=== PATIENT | female | born 1945 | race Caucasian/White ===

== ENCOUNTER → 2017-01-24 | Outpatient (CLI) | payer OTHER ==
[~2017-01-24] MED LIST: ACETAMINOPHEN325 M1 PO; ALBUTEROL NEB IH; ALPRAZOLAM 0.0.25 M1 PO; AMARYL2 MG PO; ANASTROZOLE1 MG PO; ARIMIDEX PO; ARTIFICIAL TEAR15 M1; ARTIFICIAL TEAR15 M1 OP; BENZTROPINE; BUDESONIDE0.25 MG/2 IH; CARVEDILOL6.25 MG PO; COMBIVENT PO; COZAAR 25 MG TA25 MG PO; COZAAR100 MG PO; DEPAKOTE ER250 MG PO; DEPAKOTE ER500 MG PO; DEPAKOTE500 MG PO; DESYREL150 MG PO; DEX4 GLUCOSE1 EACH PO; DIABETIC T200 MG/5 M PO; FLEXERIL PO; FLONASE 0.05%50 MCG NS; GLUCAGEN1 M2 SUBQ; HUMULIN 70100 UNIT/2 SQ; HUMULINR100 SC; HYDROCODON-ACE1 EACH PO; HYDROCODONE-AP1 EAC6 PO; LEVEMIR SUBQ; LOPERAMIDE 2 MG2 M1 PO; MECLIZINE HCL12.5 MG PO; MONTELUKAST SOD10 MG PO; NIASPAN 500 MG500 M1 PO; NOVOLIN R100 UNIT/1 SUBQ; NOVOLOG100 UNIT/1 SUBQ; POLYETHYLENE G255 GM PO; PROZAC 20 MG20 MG PO; RANITIDINE 150150 MG PO; RISPERDAL 3 MG T3 M1 PO; RISPERDAL0.25 MG PO; RISPERDAL2 MG PO; SIMVASTATIN40 MG PO; TESSALON PERLE100 MG PO; TOPAMAX 25 MG T25 M1 PO; VENTOLIN HFA 1818 GM INH; VERAMYST10 GM NASAL; VICODIN 5-5001 EACH PO; VITAMIN D 5050000 I1 PO; VITAMIN D31000 UNI2 PO; VITAMIN D350000 UNIT PO; VOLTAREN GEL 1100 G1 TOP; [UNRECOGNIZED DRUG - OTHER] PO
== END ==
LOC: RAD 03:50
DX: R92.2 Inconclusive mammogram (principal)

== ENCOUNTER → 2017-02-05 | Outpatient (CLI) | payer OTHER | LOC: MRI 07:30 | DX: R52 Pain, unspecified (principal) ==

== ENCOUNTER → 2018-02-06 | Outpatient (CLI) | payer OTHER | LOC: RAD 03:17 | DX: Z12.31 Encounter for screening mammogram for malignant neoplasm of breast (principal) ==

== ENCOUNTER → 2019-02-06 | Outpatient (CLI) | payer OTHER | LOC: RAD 01:14 | DX: Z12.31 Encounter for screening mammogram for malignant neoplasm of breast (principal) ==

== ENCOUNTER 2020-02-22 19:09 | Inpatient (IN) | payer OTHER ==
[~2020-02-22] VITALS: Ht 157.5 cm; Wt 70.4 kg
--- NOTE | ~2020-02-22 | EMS ---
[address] [address] EMS Patient Care Report Name: APOLINAR VEGA Room #: REG DEEPIKA Mckeon#: [id number] Admission: 02/22/20 Attend Phys: Discharge: Date of : 43 Report #: [id number] THIS REPORT FOR: //name// Report Transmitted: 02/22/2020 20:07 EMS Care Summary [place], [place]/[facility] Incident [id number] @ 02/22/2020 18:09 Incident Location [address] Patient APOLINAR VEGA Female, 75 Years 1945 Patient Address [address] [place] [address] Patient History Chronic Obstructive Pulmonary Disease (COPD),Hypertension (HTN),Parkinson's Disease,Hyperlipidemia,Gastro-Esophageal Reflux Disease (GERD),Breast Cancer,Bipolar II Disorder,Sleep Apnea,Type 2 Diabetes, Patient Allergies Codeine,Penicillin allergy,Sulfa, Patient Medications Ventolin, Lexapro, Alprazolam, Simvastatin, Loratadine, Glimepiride, Cyclobenzaprine, Novolog, Albuterol, Levemir, Depakote, Gabapentin, Loperamide, Losartan, Chief Complaint Dyspnea with decreased SaO2 on RA Disposition Transported No Lights/Labadie Dispatch Reason Breathing Problem Transported To [facility] [address] [place] [address] EMS Patient Care Report Name: APOLINAR VEGA Room #: REG [facility]..#: [id number] Admission: 02/22/20 Attend Phys: Discharge: Date of : 43 Report #: [id number] Narrative Called to the scene for SOB. Upon arrival, pt was BAIRES x 3 sitting in her chair with O2 via NC. PR staff reported the pt became SOB and they tried O2 @ 2 lpm which helped but then had to increase it to 4 lpm. A chest X-Ray did not show any obvious issues. They requested transport to [facility]. Pt moved to the EMS cot and loaded into the ambulance w/o incident. Vitals obtained. Attempt IV 18g x 2 w/o success in R FA. Vitals repeated. En route: pt SaO2 doing fine. RR to [facility], they advised they were on diversion. Re-routed to [facility] ER. No changes in pt condition. RR to [facility]. Arrived: pt taken to ER # and moved to their bed w/o incident. Pt care & report to ER staff. Initial Vitals @18:30P: 75,R: 16,BP: 117/46,Pain: 0/10,CO: 0,SpO2: 96, @18:40P: 79,R: 16,BP: 120/50,Pain: 0/10,GCS: 15,Glucose: 101,CO: 0,SpO2: 97,Revised Trauma: 12, Assessments @18:20MENTAL:Person Oriented,Time Oriented,Event Oriented,Place Oriented,SKIN:HEENT:LUNG SOUNDS:ABDOMEN:PELVIS//GI:EXTREMITIES:Left Arm: No Abnormalities,Right Arm: No Abnormalities,Left Leg: No Abnormalities,Right Leg: No Abnormalities,PULSE:Radial: 2+ Normal,NEURO: Impression Acute Respiratory Distress (Dyspnea) Procedures @18:20ALS AssessmentResponse: UnchangedSucceeded@PTAOxygen FlowRate: 4 Device: Nasal Cannula (NC) Response: ImprovedSucceeded@18:55Saline Lock cc (18 ga) Site: Forearm-RightResponse: UnchangedFailed@18:55Saline Lock cc (18 ga) Site: Forearm-RightResponse: UnchangedFailed@18:54StretcherResponse: Unchanged Timeline 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,Oxygen FlowRate: 4 Device: Nasal Cannula (NC) Response: ImprovedSucceeded, 18:06,Call Received 18:06,Dispatch Notified 18:09,Dispatched 18:11,En Route 18:19,On Scene 18:20,At Patient 18:20,ALS Assessment,Response: UnchangedSucceeded, 18:30,BP: 117/46 M,PULSE: 75,RR: 16 R,SPO2: 96 Ox,ETCO2: ,BG: ,PAIN: 0,GCS: , 18:35,Depart Scene 18:40,BP: 120/50 M,PULSE: 79,RR: 16 R,SPO2: 97 Ox,ETCO2: ,B,PAIN: 0,GCS: 15, 18:54,Stretcher,Response: Unchanged [address] [address] EMS Patient Care Report Name: APOLINAR VEGA Room #: REG DEEPIKA Mckeon#: [id number] Admission: 02/22/20 Attend Phys: Discharge: Date of : 43 Report #: [id number] 18:55,Saline Lock cc 18 ga Site: Forearm-Right,Response: UnchangedFailed, 18:55,Saline Lock cc 18 ga Site: Forearm-Right,Response: UnchangedFailed, 19:05,At Destination 19:26,Call Closed Disclaimer v1.1 Copyright 2020 [employer] This EMS Care Summary contains data elements from the applicable legal record (which may be displayed differently). It is designed to provide pertinent information for the following purposes: continuity of care, clinical quality, and state data reporting. The complete legal record is available to ED staff and administrators of the receiving hospital in [facility]'s Patient Tracker. All data is provided "as is."
[~2020-02-22 19:09] MED LIST changes: +LEVEMIR100 UNIT/1 SUBQ
[2020-02-22 19:14] VITALS: BP 146/40
[2020-02-22] MEDS ORDERED: FLEXERIL PO ×2 (19:25)
[2020-02-22] MEDS ORDERED: GABAPENTIN100 MG PO (19:28)
[2020-02-22] MEDS ORDERED: NEURONTIN300 MG PO (19:28)
[2020-02-22] MEDS ORDERED: XANAX 0.25 MG0.25 MG PO (19:29)
[2020-02-22] MEDS ORDERED: LIDODERM1 EACH TOP (19:30)
[2020-02-22] MEDS ORDERED: BIOFREEZE118 ML TOP (19:31)
[2020-02-22] MEDS ORDERED: LEXAPRO20 MG PO (19:32)
[2020-02-22] MEDS ORDERED: ALEVE220 M1 PO (19:35)
[2020-02-22] MEDS ORDERED: PROMETH-CODEIN 65 ML PO (19:36)
[2020-02-22] MEDS ORDERED: NASAL SPRAY30 ML NARES (19:36)
[2020-02-22] MEDS ORDERED: SINGULAIR 10 MG10 M1 PO (19:37)
[2020-02-22] MEDS ORDERED: IPRAT-ALBUT 0.5-3 ML INH (19:38)
[2020-02-22] MEDS ORDERED: SALINE NASAL M126 ML NARES (19:40)
[2020-02-22] MEDS ORDERED: LORATIDINE 10 M10 M1 PO (19:42)
[2020-02-22] MEDS ORDERED: DEPAKOTE ER250 MG PO (19:42)
[2020-02-22] MEDS ORDERED: DEPAKOTE500 MG PO (19:43)
[2020-02-22] MEDS ORDERED: FAMOTIDINE20 MG PO (19:46)
[2020-02-22] MEDS ORDERED: DIABETIC T100 MG/5 M PO (19:47)
[2020-02-22] MEDS ORDERED: VESICARE10 M1 PO (19:48)
[2020-02-22] MEDS ORDERED: NOVOLOG FL100 UNIT/M SUBQ (19:48)
[2020-02-22] MEDS ORDERED: SIMVASTATIN80 MG PO (19:54)
[2020-02-22] MEDS ORDERED: SUPER THERAVIT1 EACH PO (19:54)
[2020-02-22] MEDS ORDERED: DULCOLAX10 MG RECTAL (19:55)
[2020-02-22] MEDS ORDERED: TUMS ULTRA400 MG PO (19:56)
[2020-02-22] MEDS ORDERED: SYSTANE HYDRAT1 EACH EA. EYE (19:56)
[2020-02-22] MEDS ORDERED: LOSARTAN POTAS100 MG PO (19:57)
[2020-02-22 20:03] LABS: ABSOLUTE NEUTROPHILS 4.8 thou/uL (1.4-8.2); BASOPHILS 0.9 % (0.0-2.0); EOSINOPHILS 1.6 % (0.0-3.0); HEMATOCRIT 24.7 % (37.0-47.0); HEMOGLOBIN 7.8 gm/dL (12.0-15.0); LYMPHOCYTES 20.8 % (24.0-44.0); MCH 28.5 pg (26.0-34.0); MCHC 31.3 g/dL (28.0-37.0); MCV 90.9 fL (80.0-100.0); MONOCYTES 9.5 % (1.0-8.0); PLATELET COUNT 311 thou/uL (150-400); POLYS 67.2 % (36.0-66.0); RBC 2.72 mil/uL (4.20-5.00); RDW 16.9 % (10.5-14.5); WBC 7.2 thou/uL (4.0-11.0)
[2020-02-22 20:09] LABS: CALCIUM 8.6 mg/dL (8.5-10.1); CREATININE 0.7 mg/dL (0.6-1.0)
[2020-02-22 20:14] LABS: BE(vivo) 7.2 mmol/L (-2 to +3); PO2 122.6 mmHg (80.0-100.0); pH 7.337 (7.360-7.450); sO2 98.1 % (92.0-98.0)
[2020-02-22 20:20] LABS: ALBUMIN 2.8 g/dL (3.4-5.0); TOTAL BILIRUBIN 0.2 mg/dL (0.2-1.0); TOTAL PROTEIN 6.8 g/dL (6.4-8.2)
[2020-02-22 20:21] LABS: TROPONIN-I 0.87 ng/mL (<0.06)
--- NOTE | 2020-02-22 21:00 | NUR ---
CONSENT SIGNED AT THIS TIME WITH PATIENT AND SHASHANK MELCHOR WITNESS DUE TO PATIENT BEING IN ISOLATION ROOM
--- NOTE | 2020-02-22 21:12 | NUR ---
ELVIS VEGA, PATIENT'S DAUGHTER, CALLED AT THIS TIME PER PATIENT REQUEST TO UPDATE HER.
[2020-02-22 21:48] VITALS: BP 149/62
--- NOTE | 2020-02-22 22:18 | NUR ---
report attempted to 3 west. Nurse reports will have to call ER back
[2020-02-22 22:42] VITALS: BP 132/49; BP 149/62
[2020-02-23] VITALS (41 sets, daily range): BP systolic 80–188; BP diastolic 33–161
--- NOTE | 2020-02-23 02:09 | NUR ---
Admission history and assessments completed. Careplan initiated. IVFluids and IV antibiotics started. High fall risks, fall precautions in place.
[2020-02-23 02:21] LABS: HEMATOCRIT 25.3 % (37.0-47.0); HEMOGLOBIN 7.7 gm/dL (12.0-15.0); MCH 28.3 pg (26.0-34.0); MCHC 30.5 g/dL (28.0-37.0); MCV 92.8 fL (80.0-100.0); RBC 2.72 mil/uL (4.20-5.00); RDW 17.3 % (10.5-14.5); WBC 8.7 thou/uL (4.0-11.0)
[2020-02-23 02:32] LABS: CALCIUM 7.9 mg/dL (8.5-10.1); CREATININE 0.6 mg/dL (0.6-1.0); MAGNESIUM 1.8 mg/dL (1.8-2.4)
[2020-02-23 02:48] LABS: TROPONIN-I 0.72 ng/mL (<0.06)
--- NOTE | 2020-02-23 07:57 | EKG ---
[facility] [place] [address] ELECTROCARDIOGRAM REPORT Name: APOLINAR VEGA Room #: 353-P ADM IN M.R.#: [id number] Admission: 02/22/20 Attend Phys: Valentine Snow MD Discharge: Date of : 43 Report #: [id number] THIS REPORT FOR: cc: Criss Negron,Criss Desai,Julio Mendieta MD [facility] ~ THIS REPORT FOR: //name// [facility] ED Test Date: 2020-02-22 Test Time: 19:59:34 Pat Name: APOLINAR VEGA Department: Room: [facility] Gender: F Devulcanizer Tender: vumsbibi : 1945 Requested By: Loulou He Order Number: [id number] MD: Julio Patel Measurements Intervals Carney Rate: 82 P: 56 [place]: 141 QRS: -6 QRSD: 108 T: 7 QT: 439 QTc: 513 Interpretive Statements Sinus rhythm RSR' in V1 or V2, right VCD Prolonged QT interval Compared to ECG 09/10/2016 17:14:51 Prolonged QT interval now present Electronically Signed On 02-23-2020 7:57:12 CDT by Julio Patel [email or web address] <ELECTRONICALLY SIGNED> By: Julio Patel MD, FACC 02/23/20 0757 58 58 Julio Patel MD, FAC /EPI
--- NOTE | 2020-02-23 09:19 | NUR ---
ATTEMPTED TO CALL SHREDDING MACHINE TENDER DOCTOR MAYTE TO ALERT HER OF PATIENTS DETERIORATING SATURATION TWICE NOW BUT DR HU HAS NOT CALLED BACK.
[2020-02-23 09:25] LABS: % SATURATION 8 % (20-39); IRON 22 ug/dL (50-170); TIBC 270 ug/dL (250-450)
--- NOTE | 2020-02-23 10:48 | NUR ---
0830 PT ALERT AND ORINETED X3, FORGETFUL AT TIMES. PT DENIES CHEST PAIN, ABDOMINAL PAIN, NAUSEA AND VOMITTING. PT IS ON 2L VIA NC, PT SEEMS TO BE IN DISTRESS, O2 INCREASE UP TO 4L, O2 SAT CONTINUES TO BE AROUND 88%, TACHYPNEA. RT GAVE PT O2 TX, INCREASED [address] DARLENE SALMON. ALESSANDRO SOTO ON THE FLOOR, SAW PT AND STATE PT SHOULD BE TX TO ICU DUE TO RESPIRATORY DISTRESS. PT PUT ON NRB, O2 SAT IN THE 98%, CONTINUES TO GRASP FOR AIR. 0940 PT TRANSFERRED TO ICU, ROOM 236. REPORT GIVEN TO SHASHANK ALBRIGHT. TRIED PAGING PT DAUGHTER, NO ANSWER. WILL TRY AGAIN.
--- NOTE | 2020-02-23 11:06 | NUR ---
1025-TRANSFER FROM FLOOR. PT W STERNAL RETRACTIONS & GASPING RESP'S. UNABLE TO SPEAK.NOT MOVING ANY AIR.STAT CALL TO THRU OFFICE.--VW 1040-SPOKE W . BIPAP TO BRIDGE & PLAN FOR INTUBATION.--VW 1105-PLACED ON BIPAP,.35%,05/17.SATS .92-93%. DTR UPDATED VIA PHONE.CONSENT FOR LINE OBTAINED.
[2020-02-23 12:27] LABS: HCO3 30.1 mmol/L (22.0-26.0); PCO2 76.5 mmHg (35.0-45.0); PO2 72.2 mmHg (80.0-100.0); pH 7.213 (7.360-7.450); sO2 90.4 % (92.0-98.0)
[2020-02-23 17:36] LABS: BE(vivo) 4.3 mmol/L (-2 to +3); HCO3 30.6 mmol/L (22.0-26.0); PCO2 54.6 mmHg (35.0-45.0); PO2 103.7 mmHg (80.0-100.0); pH 7.366 (7.360-7.450); sO2 97.5 % (92.0-98.0)
--- NOTE | 2020-02-23 20:44 | NUR ---
LOT# [id number] 5FRTL LINE PLACED IN RT IJ, TRIMMED AT 24CM WITH 5CM EXT. TIP IN SVC PLEASE SEE INSERTION NI FOR DETAILS
[2020-02-24] VITALS (44 sets, daily range): BP systolic 97–184; BP diastolic 37–72
[2020-02-24 04:15] LABS: PCO2 43.9 mmHg (35.0-45.0); PO2 92.8 mmHg (80.0-100.0); pH 7.406 (7.360-7.450); sO2 97.1 % (92.0-98.0)
[2020-02-24 05:56] LABS: HEMATOCRIT 28.6 % (37.0-47.0); HEMOGLOBIN 9.1 gm/dL (12.0-15.0); MCH 29.1 pg (26.0-34.0); MCV 91.1 fL (80.0-100.0); RBC 3.14 mil/uL (4.20-5.00); RDW 16.7 % (10.5-14.5); WBC 6.4 thou/uL (4.0-11.0)
--- NOTE | 2020-02-24 06:31 | NUR ---
Pt remains sedated on propofol for ventilator management. When awoken she becomes anxious and impulsvie, JAYY, does not follow commands. FIO2 50% on vent with resps even and unlabored. Chavarria to DD w/ adequate UOP. No signs of GI bleeding, no BM. Heparin held as pt is to possibly have EGD today. 2nd COVID swab sent. EP maintained. Not progressing towards goals at this time.
[2020-02-24 06:32] LABS: CALCIUM 7.9 mg/dL (8.5-10.1); CREATININE 0.7 mg/dL (0.6-1.0); POTASSIUM 3.8 mmol/L (3.5-5.1)
--- NOTE | 2020-02-24 10:37 | NUR ---
PATIENT RECEIVED EGD, PERFORMED AT BEDSIDE IN PT ROOM. GI PHYSICIAN SPOKE WITH PT DAUGHTER POST EGD ND PROVIDED UPDATE. PT TOLERATED PROCEDURE WELL, MEDS TITRATED REQUIRED. OG TUBE REPLACED BY GI PHYSICIAN AND PLACEMENT VERIFIED BY GI PHYSICIAN VIA EGD SCOPE.
--- NOTE | 2020-02-24 16:16 | NUR ---
Case opened to follow for dc planning. Pt is currently in ICU on the vent. She is covid negx2 at this time. Chart reviewed and discussed with the care team. Pt is a [facility] care resident at [facility]. She is ambulatory with a walker and need some assist with adl's. Fit Model spoke with Cindy the social insurance specialist at [facility]. They are holding her room and she has faxed a copy of the pt's DPOA for HC for our chart. Her dtr Greer is noted as her agent with no alernate. Message left for Greer. Clinical update faxed to [facility]. Will follow.
--- NOTE | 2020-02-24 19:36 | NUR ---
ASSUMED CARE OF PT AT 1700. PT REMAINS SEDATED WITH FENT AND PROPOFOL. RVP PENDING. REPORT GIVEN TO INSTITUTIONAL COOK RN.
[2020-02-25] VITALS (25 sets, daily range): BP systolic 129–181; BP diastolic 41–96
[2020-02-25 04:06] LABS: GLYCOHEMOGLOBIN (HGB A1C) 5.8 % (4.8-5.6)
[2020-02-25 04:51] LABS: HEMATOCRIT 27.1 % (37.0-47.0); HEMOGLOBIN 8.6 gm/dL (12.0-15.0); MCH 28.8 pg (26.0-34.0); MCHC 31.7 g/dL (28.0-37.0); MCV 90.8 fL (80.0-100.0); RBC 2.99 mil/uL (4.20-5.00); RDW 16.8 % (10.5-14.5); WBC 5.5 thou/uL (4.0-11.0)
[2020-02-25 05:01] LABS: CALCIUM 8.2 mg/dL (8.5-10.1); CREATININE 0.6 mg/dL (0.6-1.0)
--- NOTE | 2020-02-25 10:19 | 2DMMODE ---
[facility] [place] [place] [address] 2 D/M-MODE ECHOCARDIOGRAM Name: APOLINAR VEGA Room #: 243-P ADM IN M.R.#: [id number] Admission: 02/22/20 Attend Phys: Valentine Snow MD Discharge: Date of : 44 Report #: [id number] THIS REPORT FOR: cc: Criss Negron,Julio Swan MD [facility] ~ APPROVED REPORT Study performed: 02/25/2020 08:25:47 EXAM: Comprehensive 2D, Doppler, and color-flow Echocardiogram Patient Location: ICU Room #: 243 Status: routine BSA: 1.86 HR: 73 bpm BP: 130/45 mmHg Rhythm: NSR Other Information Study Quality: Good Indications Congestive Heart Failure COPD Dyspnea Hypertension/HDD 2D Dimensions RVDd: 33.84 mm IVSd: 10.02 (7-11mm) LVOT Diam: 20.34 (18-24mm) LVDd: 49.59 mm PWd: 9.64 (7-11mm) Ascending Ao: 25.50 (22-36mm) LVDs: 39.94 (25-40mm) Aortic Root: 25.39 mm IVC: 22.00 mm Volumes Left Atrial Volume (Systole) Single Plane 4CH: 67.24 mL Single Plane 2CH: 87.96 mL LA ESV Index: 45.00 mL/m2 Aortic Valve AoV Peak Rashid.: 2.27 m/s AO Peak Gr.: 20.69 mmHg LVOT Max P.29 mmHg [facility] [address] [address] 2 D/M-MODE ECHOCARDIOGRAM Name: APOLINAR VEGA Room #: 243-P [facility] IN M.R.#: [id number] Admission: 02/22/20 Attend Phys: Cookie Evans Discharge: Date of : 43 Report #: [id number] AO Mean Gr.: 12.54 mmHg LVOT Mean P.32 mmHg AO V2 Mean: 1.67 m/s LVOT Max V: 0.76 m/s AO V2 VTI: 60.94 cm LVOT Mean V: 0.54 m/s ENDY (VTI): 1.10 cm2 LVOT V1 VTI: 20.62 cm ENDY Vmax: 1.08 cm2 SV (LVOT): 66.93 mL Mitral Valve E/A Ratio: 1.2 MV Decel. Time: 207.78 ms MV E Max Rashid.: 1.30 m/s MV A Rashid.: 1.07 m/s MV PHT: 60.26 ms IVRT: 73.82 ms Pulmonary Valve PV Peak Rashid.: 1.22 m/s PV Peak Gr.: 5.94 mmHg Pulmonary Vein P Vein S: 0.94 m/s P Vein A: 0.32 m/s P Vein D: 0.65 m/s P Vein A Dur.: 115.3 msec P Vein S/D Ratio: 1.45 Tricuspid Valve TR Peak Rashid.: 3.03 m/s TR Peak Gr.: 36.65 mmHg PA Pressure: 47.00 mmHg Left Ventricle The left ventricle is normal size. There is global hypokinesis of the left ventricle. There is normal left ventricular wall thickness. Left ventricular systolic function is moderately decreased. LVEF is 40%. Moderate diastolic dysfunction is present (pseudonormal filling). Right Ventricle The right ventricle is normal size. The right ventricular systolic function is normal. Atria Left atrium is dilated. Right atrium is at the upper limits of normal. Catheter tip is present in the right atrium. Aortic Valve Aortic valve is moderately calcified. No aortic regurgitation is present. Mild to moderate aortic stenosis. Calculated aortic valve [facility] [address] [place] [address] 2 D/M-MODE ECHOCARDIOGRAM Name: APOLINAR VEGA Room #: 243-P ADM IN [facility]#: [id number] Admission: 02/22/20 Attend Phys: Cookie Evans Discharge: Date of : 43 Report #: [id number] area is 1.1 cm2 with maximum pressure gradient of 21 mmHg and mean pressure gradient of 13 mmHg. Mitral Valve Moderate mitral annular calcification Mild-moderate mitral regurgitation. No evidence of mitral valve stenosis. Tricuspid Valve The tricuspid valve is normal in structure. There is trace tricuspid regurgitation. Estimated PAP 45 mmHg. There is moderate pulmonary hypertension. Pulmonic Valve The pulmonary valve is normal in structure. There is no pulmonic valvular regurgitation. Great Vessels The aortic root is normal in size. IVC is dilated and collapses <50% with inspiration. Pericardium There is no pericardial effusion. <Conclusion> Left ventricular systolic function is moderately decreased. There is global hypokinesis of the left ventricle. LVEF is 40%. Moderate diastolic dysfunction Aortic valve is moderately calcified. Mild to moderate aortic stenosis, no insufficiency. Calculated aortic valve area is 1.1 cm2 with maximum pressure gradient of 21 mmHg and mean pressure gradient of 13 mmHg. Moderate mitral annular calcification. Mild-moderate mitral regurgitation. There is trace tricuspid regurgitation. Estimated pulmonary artery pressure of 45 mmHg. There is no pericardial effusion. <ELECTRONICALLY SIGNED> By: Julio Patel MD, FACC 02/25/20 1019 1019 1019 Julio Patel MD, FACC /INF
[2020-02-25 10:34] LABS: BE(vivo) 4.3 mmol/L (-2 to +3); HCO3 29.2 mmol/L (22.0-26.0); PCO2 45.6 mmHg (35.0-45.0); PO2 73.5 mmHg (80.0-100.0); pH 7.425 (7.360-7.450)
--- NOTE | 2020-02-25 15:41 | P ---
[facility] [place] [address] PROCEDURE REPORT Name: APOLINAR VEGA Room #: 243-P ADM IN M.R.#: [id number] Admission: 02/22/20 Attend Phys: Valentine Snow MD Discharge: Date of : 44 Report #: [id number] THIS REPORT FOR: cc: Criss Negron,Jonathan Hagen MD ~ CC: Valentine Cr MD DATE OF SERVICE: 02/24/2020 PROCEDURE PERFORMED: Upper endoscopy. HISTORY OF PRESENT ILLNESS: The patient is a 75-year-old female who was admitted with increasing shortness of breath, went into respiratory failure requiring intubation yesterday. She is currently in the ICU, intubated and sedated. She has bilateral infiltrates. Her COVID testing was negative x 1. Infectious Disease and Pulmonary are following at this time. She is on antibiotics. REASON FOR GI CONSULTATION: Was anemia. Stool was Hemoccult positive. The patient had a hemoglobin on admission of 7.8, 7.7 yesterday. She was transfused 1 unit and hemoglobin is 9.1 at this time. Again, she is Hemoccult positive. Plan is for EGD. The patient was also on NSAIDs at home. DESCRIPTION OF PROCEDURE: The risks and benefits of the procedure were explained to the patient's daughter. Those risks including but not limited to bleeding, perforation, the risk of sedation. She understood these risks and gave informed consent. The procedure was performed in the Intensive Care Unit room. Again, the patient is already on a vent and on a propofol drip. Next using a standard Olympus upper endoscope, the scope was placed in the patient's mouth and advanced under direct vision through the esophagus, stomach and into the second portion of the duodenum. Prior to this, the OG was removed. The esophagus was normal throughout. The GE junction was normal. In the stomach, there were several linear areas of gastritis, one with a small clean white based ulcer of approximately 4 mm. There were some erythematous changes, but no evidence of visible vessel. No evidence of bleeding. There was no blood throughout the exam today. The gastric antrum was normal. The pylorus was normal and patent. The duodenal bulb, first and second portion were all normal. At this point, the scope was then brought back up into the patient's esophagus and a new OG was placed and advanced into the stomach under direct vision [address] [address] PROCEDURE REPORT Name: APOLINAR VEGA Room #: 243-P [facility] IN .R.#: [id number] Admission: 02/22/20 Attend Phys: Valentine Snow MD Discharge: Date of : 43 Report #: [id number] endoscopically without difficulty. At this point, the OG was left in place as the scope was then withdrawn and the procedure terminated. The patient tolerated the procedure well. IMPRESSION: 1. Linear gastritis, possible source of gastrointestinal bleed and Hemoccult positive stool. No evidence of active bleeding at this time. 2. Single small gastric ulcer. 3. Otherwise, normal upper endoscopy. RECOMMENDATIONS: 1. Continue to monitor hemoglobin closely. 2. Continue b.i.d. PPI therapy. Thank you for allowing me to participate in her care. <ELECTRONICALLY SIGNED> By: Jonathan Howard MD 02/25/20 1541 1042 1329 Jonathan Howard MD /nt
--- NOTE | 2020-02-25 15:41 | P ---
[facility] [place] [address] PROCEDURE REPORT Name: APOLINAR VEGA Room #: 243-P ADM IN M.R.#: [id number] Admission: 02/22/20 Attend Phys: Valentine Snow MD Discharge: Date of : 43 Report #: [id number] THIS REPORT FOR: cc: Criss Negron,Jonathan Hagen MD ~ CC: Valentine Negron DATE OF SERVICE: 02/24/2020 PROCEDURE PERFORMED: Upper endoscopy. HISTORY OF PRESENT ILLNESS: The patient is a 75-year-old female who was admitted for increasing shortness of breath, getting intubated yesterday and sedated. She is currently in the ICU. She was noted to be DICTATION ENDS HERE <ELECTRONICALLY SIGNED> By: Jonathan Howard MD 02/25/20 1541 1032 1320 Jonathan Howard MD /nt
--- NOTE | 2020-02-25 17:40 | NUR ---
DAUGHTER CALLED THIS AFTERNOON AND WAS UPDATED BY RN. TEXT SENT TO DR. COLON VIA Sand 9 TEXT REGARDING BACTERIOLOGIST PHARMACEUTICAL ORDER FOR TUBEFEEDING REC., PATIENT'S HOME MEDS, AND DAUGHTER REQUESTING CALL FROM MD FOR UPDATE. NO CHANGE IN PATIENT'S CONDITION AT THIS TIME.
[2020-02-26] VITALS (24 sets, daily range): BP systolic 129–177; BP diastolic 37–71
[2020-02-26 05:15] LABS: CALCIUM 8.2 mg/dL (8.5-10.1); CREATININE 0.7 mg/dL (0.6-1.0)
[2020-02-26 05:16] LABS: HEMATOCRIT 30.7 % (37.0-47.0); HEMOGLOBIN 9.9 gm/dL (12.0-15.0); MCH 29.1 pg (26.0-34.0); MCHC 32.2 g/dL (28.0-37.0); MCV 90.3 fL (80.0-100.0); RBC 3.4 mil/uL (4.20-5.00); RDW 17.3 % (10.5-14.5); WBC 9.9 thou/uL (4.0-11.0)
--- NOTE | 2020-02-26 06:00 | NUR ---
CALLLED PT'S DAUGHTER JUAN AT 2216. UPDATED HER ON VITAL SIGNS, RESULTS OF PT'S ECHO AND OVERALL PT'S STATUS. PT HAD A GOOD NIGHT RESTED WELL, SEDATION VACATION AT 2021, LASTED 8 MINUTES, PT HAS POSITIVE COUGH AND GAG, OPENS EYES ON COMMAND, MOVES EXTREMITIES HOWEVER DOES NOT FOLLOW COMMANDS. PT IS STABLE >2000 U/O THIS SHIFT. BATH THIS SHIFT, WILL CONTINUE TO MONITOR
--- NOTE | 2020-02-26 11:26 | NUR ---
chart review, report from bedside nurse. wean trails to try and extubate. no anticpated dc over weekend will cont following as needed for dc needs. updates to be sent to [facility].
[2020-02-26 11:38] LABS: BE(vivo) 10.4 mmol/L (-2 to +3); HCO3 35.5 mmol/L (22.0-26.0); PCO2 49.9 mmHg (35.0-45.0); PO2 67.8 mmHg (80.0-100.0); sO2 94.3 % (92.0-98.0)
--- NOTE | 2020-02-26 17:56 | NUR ---
ASSUMED CARE OF PT AT 0700, PT IS A GCS OF 14 AT THIS TIME, DENIES PAIN OR DISCOMFORT EXCEPT SORE THROAT. PT EXTUBATED AT 1205 TODAY. SHE IS ON 3L NC AND SATTING IN THE MID 90s. PT HAS BEEN AFIBRILE. DTR UPDATED ON PT CONDITION. PT RESTING NOW WITH EYES CLOSED.
--- NOTE | 2020-02-26 23:28 | NUR ---
PT IS ORIENTED TO PERSON AND SOMETIMES PLACE. VERY PLEASANT AND COOPERATIVE BUT EXTREMELY FORGETFUL. SHE FREQUENTLY TAKES OFF HER O2 TUBING AND SPO2 DROPS TO 85-89%. FREQUENT REORIENTATION PROVIDED. SPO2 >90% ON 4LNC. C/O SORE THROAT. PT HAS VERY WEAK, NON-PRODUCTIVE COUGH. REPOSITIONED TO PREVENT SKIN BREAKDOWN. ORAL CARE PROVIDED. PROGRESSING SLOWLY TOWARD POC GOALS. WILL CONTINUE TO MONITOR.
[2020-02-27] VITALS (20 sets, daily range): BP systolic 126–177; BP diastolic 31–69
--- NOTE | 2020-02-27 05:46 | NUR ---
PT DID NOT SLEEP MUCH DURING THE NIGHT. SHE CONTINUES TO HAVE A WEAK, CONGESTED, NON-PRODUCTIVE COUGH. COMPLETE BED BATH GIVEN. REPOSITIONED TO PREVENT SKIN BREAKDOWN. ORAL CARE PROVIDED. PATIENT KEPT NPO UNTIL ST EVAL TO MAKE SURE SHE DOES NOT ASPIRATE POST-EXTUBATION. FALL PRECAUTIONS IN PLACE. PROGRESSING SLOWLY TOWARD POC GOALS. WILL CONTINUE TO MONITOR FURTHER.
[2020-02-27 05:56] LABS: MAGNESIUM 1.9 mg/dL (1.8-2.4); POTASSIUM 3.5 mmol/L (3.5-5.1)
--- NOTE | 2020-02-27 08:47 | NUR ---
SPEECH THERAPY HERE TO SEE PT.
--- NOTE | 2020-02-27 10:22 | NUR ---
PT FAMILY CALLED AND ASKED TO SPEAK WITH PT. TRANSFERRED TO PT ROOM AND ASSISTED WITH ANSWERING
--- NOTE | 2020-02-27 16:04 | NUR ---
PT WAS TRANSFERRED TO ROOM 211 VIA BED. ALL BELONGINGS SENT WITH PT.
--- NOTE | 2020-02-27 18:45 | NUR ---
PT CARE ASSUMED AT 1445. ASSESSMENT CHARTED. MEDICATION CHAERTED. PT HAS RT IJ TRIPLE LUMEN. PT HAS CONSTANT DRY COUGH. INCONTINENT OF BOWEL. LAIRD.
[2020-02-27 23:05] LABS: ADENOVIRUS Negative (Negative); INFLUENZA A Negative (Negative); INFLUENZA B Negative (Negative); METAPNEUMOVIRUS Negative (Negative); PARAINFLUENZA 1 Negative (Negative); PARAINFLUENZA 2 Negative (Negative); PARAINFLUENZA 3 Negative (Negative); RHINOVIRUS Negative (Negative); RSV A Negative (Negative); RSV B Negative (Negative)
[2020-02-28] VITALS (9 sets, daily range): BP systolic 152–174; BP diastolic 56–71
--- NOTE | 2020-02-28 05:58 | NUR ---
PATIENTS CARES WERE ASSUMED AT SHIFT CHANGE. PATIENT WAS ASSESSED AND MEDS WERE PASSED. PATIENT CONTINUED WITH A CHRONIC COUGH THIS ENTIRE SHIFT. PATIENT NEED HER ALLERGY MEDS REINSTATED. PATIENT C/O STOMACH PAIN R/T THIS CONTINUSE COUGH. PATIENT WAS NOT ABLE TO GET MUCH REST EITHER DUE TO THIS COUGH. WILL PASSED TO DAY SHIFT FOR A COUGH SUPPRESSENT AND A SLEEP AIDE. THIS PATIENT COULD ALSO BENIFIT WITH A PULMONARY CONSULT DUE TO THIS COUGH. HOURLY ROUNDS WERE DONE. THE BED IS IN A LOW AND LOCKED POSITION.
[2020-02-28 06:07] LABS: CALCIUM 8.5 mg/dL (8.5-10.1); CREATININE 0.7 mg/dL (0.6-1.0); POTASSIUM 3.2 mmol/L (3.5-5.1)
[2020-02-28 10:10] LABS: ALBUMIN 2.8 g/dL (3.4-5.0); DIRECT BILIRUBIN < 0.1 mg/dL (<0.1-0.2); SGOT 41 U/L (15-37); SGPT 30 U/L (30-65); TOTAL BILIRUBIN 0.3 mg/dL (0.2-1.0); TOTAL PROTEIN 6.5 g/dL (6.4-8.2)
--- NOTE | 2020-02-28 19:57 | NUR ---
PT CARE ASSUMED AT 0700. ASSESSMENTS CHARTED. MEDICATION CHARTED. PERSISTANT DRY COUGH DISAPPEARS WHEN SLEEPING. SLOW EATER; REQUIRES LARGE PILLS TO BE BROKEN. LG BM TODAY.
[2020-02-29 05:08] VITALS: BP 168/69
[2020-02-29 06:32] LABS: CALCIUM 8.3 mg/dL (8.5-10.1); CREATININE 0.5 mg/dL (0.6-1.0); POTASSIUM 3.8 mmol/L (3.5-5.1)
--- NOTE | 2020-02-29 07:18 | NUR ---
patients cares were assumed at shift change. patient was assessed and meds wee passed. hourly rounds were done. the bed is in a low and locked position
[2020-02-29 08:00] VITALS: BP 160/69
[2020-02-29 11:20] VITALS: BP 132/60
[2020-02-29 14:38] VITALS: BP 147/93
[2020-02-29 16:00] VITALS: BP 151/96
--- NOTE | 2020-02-29 16:50 | NUR ---
FAXED CLINICAL UPDATE TO OP SPOKE WITH GERALD IN ADM SHE RECEIVED UPDATE. DP TO FOLLOW.
--- NOTE | 2020-02-29 20:05 | NUR ---
ASSUMMED PT CARE AT APPROXIMATELY 0700. PT A&O X3. FREQUENT ORIENTATION PROVIDED. ASSESSMENT CHARTED. FALL PRECAUTIONS IN PLACE. PT DENIES HAVING CHEST PAIN. PT DENIES HAVING SOB. PT DENIES HAVING ACUTE PAIN. VITAL SIGNS STABLE. INFORMED DR. COLON OF PT'S ELEVATED BLOOD SUGAR. DR. OCLON ORDERED NEW ORDERS. NEW ORDERS IMPLEMENTED. PT HAD STRESS TEST TODAY. AWAITING RESULTS. PT UP TO CHAIR THROUGHOUT SHIFT. PT COMFORTABLE. PT DENIES HAVING FURTHER CONCERNS.
[2020-02-29 20:30] VITALS: BP 139/60
--- NOTE | 2020-03-01 04:12 | NUR ---
ASSUMED PT CARE AT 1900. PT IS ALERT AND ORIENTED TO SELF AND PLACE. PT IS SITTING IN CHAIR COMFORTABLY. NO SIGN OF DISTRESS NOTED IN PT. DENIES ANY PAIN. PT IS TRANSFERRED FROM CHAIR TO BED WITH A GAIT BELT AND WALKER. FALL PRECAUTION IN PLACE. ASSESSMENT DOCUMENTED AND COMPLETED. SWALLOW PRECAUTION IN PLACE. SCHEDULED MEDS ADMINISTERED TO PT. TOLERATED PO INTAKE. PT IS STABLE THROUGH THE NIGHT. NO ACUTE EVENTS THROUGH THE PT. CONTINUE TO MONITOR. NO FURTHER NEEDS AT THIS TIME
[2020-03-01 04:40] VITALS: BP 166/67
[2020-03-01 06:07] LABS: HEMATOCRIT 34.4 % (37.0-47.0); HEMOGLOBIN 10.6 gm/dL (12.0-15.0); MCH 27.9 pg (26.0-34.0); MCHC 30.9 g/dL (28.0-37.0); MCV 90.3 fL (80.0-100.0); RBC 3.81 mil/uL (4.20-5.00); RDW 17.6 % (10.5-14.5); WBC 11.1 thou/uL (4.0-11.0)
[2020-03-01 06:21] LABS: CALCIUM 8.7 mg/dL (8.5-10.1); CREATININE 0.6 mg/dL (0.6-1.0); POTASSIUM 3.4 mmol/L (3.5-5.1)
[2020-03-01 07:40] VITALS: BP 153/61
--- NOTE | 2020-03-01 08:29 | NUR ---
ASSUMED CARE OF PT AT SHIFT CHANGE, SHE'S A&0X4, WALKS W/ASSIST AND WALKER. WEARING 02, GOT HER SITUATED UP HIGH IN BED. AND A WARM BLANKET. SEE SEPARATE INTERVENTIONS FOR ASSESSMENTS.REDUCED 02 TO 1L SHE SATS 98% ON 3L. WILL CONTINUE TO MONITOR. PT STATES HER DAUGHTER WILL BE PICKING HER UP FOR DISCHARGE WHENEVER THAT OCCURS.
--- NOTE | 2020-03-01 10:51 | NUR ---
followup; extubated and transferred out of ICU with diet advance. ST following. Intake starting to roller picker ate 100% of meal yesterday. BG improving. Did have large decrease in wt over just few days to 164 lb? Continue to follow intake and wt trends, but will change nutrition status to low risk
[2020-03-01 11:16] VITALS: BP 128/41
--- NOTE | 2020-03-01 14:22 | NUR ---
Spoke with patient, dtr and [facility]. Patient reports she wants to return to [facility]. [facility] evaled and accepting. Faxed pertinent information and therapy evals to [facility] if can accomdate rehab needs. Sp with dtr and patient. Dtr prefers [facility] re[facility]. She reports patient will need to isolate upon returning to [facility]. She will work with a therapist just coming to her room. Dtr will not be able to see patient. She is concerned patient has been intubated and dizziness with therapy, she would benefit from acute rehab stay. Patient today reluctantly agreeable. Dtr also discussing cardiac cath. Dtr reports she will be at hospital tomorrow. Patients phone is broke updated unit secretry
--- NOTE | 2020-03-01 16:28 | NUR ---
PATIENT HAS BEEN ACCEPTED FOR ACUTE REHAB STAY. VOLUNTEER SPECIALIST VISITED WITH PATIENT WITH DAUGHTER LISTENING ON PHONE. PATIENT AND DAUGHTER IN AGREEMENT FOR A SHORT REHAB STAY. PATIENT GIVEN REHAB BROCHURE WITH LIAISON'S CARD ATTACHED. REHAB EXPECTATIONS AND REQUIREMENTS DISCUSSED. INFORMED BY DAUGHTER THAT PATIENT IS TO HAVE CATH ON SATURDAY. PATIENT TO BE ADMITTED TO REHAB WHEN MEDICALLY READY. THANK YOU FOR THIS REFERRAL.
[2020-03-01 16:38] VITALS: BP 143/62
[2020-03-01 19:58] VITALS: BP 119/45
[2020-03-02 03:50] VITALS: BP 160/63
--- NOTE | 2020-03-02 04:14 | NUR ---
ASSESSED AT START OF SHIFT PT SITTING UP IN CAHIR. DENIES PAIN, N/V. 92% ON 2L OF NC. BLOODSUGAR CHECKED AND INSULIN ADMININSTERED. MEDS GIVEN CRUSHED IN APPLE SAUCE. FALL PREC IN PLACE AND WILL CONT TO MONITOR.
[2020-03-02 07:22] VITALS: BP 148/60
[2020-03-02 10:57] VITALS: BP 127/52
[2020-03-02 16:12] VITALS: BP 127/60
--- NOTE | 2020-03-02 16:53 | NUR ---
plan cardiac cath and 5n /saturday. patient and dtr in agreement.
--- NOTE | 2020-03-02 18:14 | NUR ---
ASSESSMENT DOCUMENTED. VSS. DAUGHTER AT BEDSIDE. DAUGHTER (DPOA) SIGNED CONSENT FOR CATH PROCEDURE TOMORROW. IN PT CHART. PT STATES NO PAIN/CHEST PAIN. SR ON THE MONITOR. WILL CONTINUE TO MONITOR. PT RESTING IN CHAIR WITH CALL LIGHT IN REACH.
[2020-03-02 19:43] VITALS: BP 122/53
--- NOTE | 2020-03-03 00:30 | NUR ---
Assumed pt care at 1900. A/OX4,very pleasant. VSS.Denies pain on assessment. Up with AX1,RW/GB. SNR on telemetry. Has a right IJ patent. Chavarria to DD draining yellow urine. Pt has an order for a covid test,when web content writer informed pt about it she declined it stating she had 2 before and she won't have it done again. Pt's care passed on to Karen ENCARNACION at this time.
[2020-03-03 04:00] VITALS: BP 137/50
[2020-03-03 05:08] LABS: CALCIUM 8.3 mg/dL (8.5-10.1); CREATININE 0.7 mg/dL (0.6-1.0); POTASSIUM 3.5 mmol/L (3.5-5.1)
--- NOTE | 2020-03-03 05:28 | NUR ---
ASSESSMENTS CHARTED, MEDS CHARTED GIVEN. TOOK OVER CARE OF PATIENT AT 2330. PATIENT RESTING IN BED DURING MY SHIFT. NON-PRODUCTIVE COUGH. NPO SINCE MIDNIGHT FOR VISIT TO MANAGEMENT INSTRUCTOR THIS MORNING. MORNING ORAL MEDS HAVE BEEN HELD TILL POST PROCEDURE. PATIENT ON ABX FOR (+) H. PYLORI. FALL PRECAUTIONS IN PLACE DURING SHIFT. DENIED PAIN. VSS.
[2020-03-03 05:52] LABS: HEMATOCRIT 32.4 % (37.0-47.0); HEMOGLOBIN 10.3 gm/dL (12.0-15.0); MCH 28.9 pg (26.0-34.0); MCHC 31.9 g/dL (28.0-37.0); MCV 90.5 fL (80.0-100.0); RBC 3.58 mil/uL (4.20-5.00); RDW 17.9 % (10.5-14.5); WBC 12.2 thou/uL (4.0-11.0)
[2020-03-03 07:21] VITALS: BP 138/45
[2020-03-03 11:58] VITALS: BP 130/43
--- NOTE | 2020-03-03 14:03 | CATHLAB ---
[facility] [place] [address] INVASIVE PROCEDURE REPORT Name: APOLINAR VEGA Room #: 211-P ADM IN M.R.#: [id number] Admission: 02/22/20 Attend Phys: Valentine Snow MD Discharge: Date of : 43 Report #: [id number] THIS REPORT FOR: cc: Criss Negron,Michael Castro MD ~ APPROVED REPORT Study performed: 03/03/2020 10:14:58 Patient Details Patient Status: In-Patient Room #: The patient is a 75 year-old female Event Personnel Michael Crisostomo Clerk Travel Reservations, Phong Moran RN RN, Adalgisa Florez RTR Monitor, Marnie Pena RTR Scrub, Tiff Red RTR Scrub Procedures Performed Left Heart Cath w/or w/o Coronaries [id number] [facility] Art Access - R femoral artery* 12182 Initial Mod Sed Same Phys/QHP Gr5y 653164 66094 Mod Sed Same Phys/QHP Ea 897000 Hemostasis with Manual pressure Indication CHF Current Status: , Dyspnea, CardiomyopathyPositive stress test Risk Factors Obesity, Chronic Lung DiseaseHypercholesterolemiaPhysical Activity, Hypertension Procedure Narrative The patient was brought electively to the Cardiac Catheterization Laboratory and was prepped and draped in a sterile manner. The Right Groin^ was infiltrated with 1% Lidocaine subcutaneous anesthesia. A PINNACLE 4FR Sheath #[id number] sheath was inserted into the RFA^. Coronary angiography was performed using coronary diagnostic catheters. The right coronary system was accessed and visualized with a JR4 catheter. The left coronary system was accessed and visualized with a JL4 catheter. The left ventricle was accessed and visualized with a ANGLED PIGTAIL catheter. Hemostasis was obtained with manual pressure following sheath removal without any complications. The [facility] [place] [address] INVASIVE PROCEDURE REPORT Name: APOLINAR VEGA Room #: 211-P [facility] IN M.R.#: [id number] Admission: 02/22/20 Attend Phys: Cookie Evans Discharge: Date of : 44 Report #: [id number] patient tolerated the procedure well and there were no complications associated with the procedure. There was no hematoma. Intraoperative Conscious Sedation Sedation start time: 10:52 Case end Time: 11:33 Fentanyl 100 mcg Versed 2 mg Fluoro Time: 5.20 minutes Dose: DAP 5060.00 cGycm2 1215 mGy Contrast Type and Amount: Omnipaque 105 ml Diagnostic Cath Left Main The left main artery is a large-caliber vessel, appears angiographically normal. LAD The LAD is a moderate-sized caliber vessel, tortuous as it travels down the anterior wall. There is mild disease in the proximal and distal segments, 20%. Diagonal 1 This is a small to moderate-sized caliber vessel, patent with no flow-limiting lesions. Diagonal 2 This is a small to moderate-sized caliber vessel, patent with no flow-limiting lesions. Circumflex The left circumflex artery is a codominant vessel, with mild disease in the proximal segment. OM1 This is a moderate-sized caliber vessel, patent with no flow-limiting lesions. OM2 This is a moderate-sized caliber vessel, with a moderate stenosis proximally, 40 to 50%. Right Coronary There is mild diffuse disease in the midsegment, 30%. R PDA This is a small to moderate-sized caliber vessel, patent with no flow-limiting lesions. Left Ventriculography Left Ventriculography was not performed. Ejection Fraction was 35-40% based off patient's Echocardiogram. Hemodynamics The aortic pressure is 156/54 mmHg with a mean of mmHg. The left ventricular pressure is 125/29 mmHg with a mean of mmHg. The left ventricular end diastolic pressure is 31 mmHg. Conclusion 1. Nonischemic cardiomyopathy. [facility] [address] [place] [address] INVASIVE PROCEDURE REPORT Name: APOLINAR VEGA Room #: 211-P [facility] IN M.R.#: [id number] Admission: 02/22/20 Attend Phys: Cookie Evans Discharge: Date of : 43 Report #: [id number] 2. There is mild to moderate coronary artery disease. 3. Recommend guideline directed medical therapy. <ELECTRONICALLY SIGNED> By: Michael Crisostomo MD 03/03/20 140 01 01 Michael Crisostomo MD /INF
[2020-03-03 19:57] VITALS: BP 134/54
--- NOTE | 2020-03-03 21:30 | NUR ---
ASSUMED CARE OF PATIENT AT 0700. PATIENT C/O HEADACHE WHICH IS PARTIALLY ALLEVIATED WITH ACET. COVID SWAB PERFORMED. LAIRD PATENT. CARDIAC CATH THIS A.M. RIGHT GROIN SITE FREE OF HEMATOMA, DRAINAGE OR EDEMA. SITE CONFIRMED WITH COMMERCIAL STRIPPER NURSE. POST CATH VITALS SHEET COMPLETED AND IN CHART. PATIENT DENIES CHEST PAIN OR DIFFICULTY BREATHING. ACCUCHECK ACHS. PT RELUCTANTLY COOPERATED WITH PT POST BEDREST. PATIENT TO CONTINUE WITH POC.
[2020-03-04] VITALS: BP 157/53
[2020-03-04 04:18] VITALS: BP 145/51
--- NOTE | 2020-03-04 04:47 | NUR ---
SLEPT MOST OF SHIFT. SEE INTERVENTION FOR CATH CHECKS. WORKING ON GOALS AND PLAN OF CARE FOR NOC. PROGRESSING TOWARDS TRANSFER TO REHAB. DENIES COMPLAINTS AT THIS TIME. TURNS SELF. CONTINUE TO ASSES CLOSELY.
[2020-03-04 06:36] LABS: HEMOGLOBIN 10.6 gm/dL (12.0-15.0); MCH 28.1 pg (26.0-34.0); MCV 90.6 fL (80.0-100.0); RBC 3.75 mil/uL (4.20-5.00); WBC 12.1 thou/uL (4.0-11.0)
[2020-03-04 06:42] LABS: CALCIUM 8.4 mg/dL (8.5-10.1); CREATININE 0.7 mg/dL (0.6-1.0); POTASSIUM 4.3 mmol/L (3.5-5.1)
[2020-03-04 07:45] VITALS: BP 146/52
[2020-03-04] MEDS ORDERED: ASPIR 8181 MG PO (09:54)
[2020-03-04] MEDS ORDERED: CARVEDILOL12.5 MG PO (09:54)
[2020-03-04] MEDS ORDERED: LASIX 40 MG TAB40 M1 PO (09:54)
[2020-03-04] MEDS ORDERED: LANTUS SUBQ (11:15)
[2020-03-04] MEDS ORDERED: PANTOPRAZOLE SO40 M1 PO (11:15)
[2020-03-04] MEDS ORDERED: CLARITHROMYCIN250 M2 PO (11:15)
[2020-03-04] MEDS ORDERED: FLAGYL500 M1 PO (11:15)
[2020-03-04 12:00] VITALS: BP 113/89
--- NOTE | 2020-03-04 13:53 | NUR ---
REPORT CALLED TO SISTER BOO ON REHAB UNIT. WILL DISCHARGE PT TO UNIT.
--- NOTE | 2020-03-04 15:06 | NUR ---
patient discharged to 5N acute rehab.
== END 2020-03-04 14:23 | DRG 208 ==
LOC: ER 19:09 → EROBS 21:20 → 3W 21:20 → ICU 02-23 10:13 → 2N 02-27 14:30
PROVIDERS: Internal Medicine Cardiovascular Disease; Internal Medicine Pulmonary Disease; Nurse Practitioner; Nurse Practitioner Family; Physician Assistant; Specialist; ADMIT Hospitalist; ATTEND Hospitalist
PROC: 02H633Z Insertion of Infusion Device into Right Atrium, Percutaneous Approach (ICD-10-PCS; principal; 2020-02-23)
PROC: 30233N1 Transfusion of Nonautologous Red Blood Cells into Peripheral Vein, Percutaneous Approach (ICD-10-PCS; principal; 2020-02-23)
PROC: 5A09357 Assistance with Respiratory Ventilation, Less than 24 Consecutive Hours, Continuous Positive Airway Pressure (ICD-10-PCS; principal; 2020-02-23)
PROC: 5A1945Z Respiratory Ventilation, 24-96 Consecutive Hours (ICD-10-PCS; principal; 2020-02-23)
PROC: 0BH17EZ Insertion of Endotracheal Airway into Trachea, Via Natural or Artificial Opening (ICD-10-PCS; principal; 2020-02-23)
PROC: 0DJ08ZZ Inspection of Upper Intestinal Tract, Via Natural or Artificial Opening Endoscopic (ICD-10-PCS; 2020-02-24)
PROC: B2111ZZ Fluoroscopy of Multiple Coronary Arteries using Low Osmolar Contrast (ICD-10-PCS; 2020-03-03)
PROC: 4A023N7 Measurement of Cardiac Sampling and Pressure, Left Heart, Percutaneous Approach (ICD-10-PCS; 2020-03-03)
DX: J69.0 Pneumonitis due to inhalation of food and vomit (principal); K29.71 Gastritis, unspecified, with bleeding; K25.4 Chronic or unspecified gastric ulcer with hemorrhage; J96.21 Acute and chronic respiratory failure with hypoxia; J96.22 Acute and chronic respiratory failure with hypercapnia; E43 Unspecified severe protein-calorie malnutrition; I21.4 Non-ST elevation (NSTEMI) myocardial infarction; G93.40 Encephalopathy, unspecified; I42.9 Cardiomyopathy, unspecified; E87.3 Alkalosis; R79.89 Other specified abnormal findings of blood chemistry; M19.90 Unspecified osteoarthritis, unspecified site; F31.9 Bipolar disorder, unspecified; D64.9 Anemia, unspecified; G47.33 Obstructive sleep apnea (adult) (pediatric); E78.5 Hyperlipidemia, unspecified; F41.9 Anxiety disorder, unspecified; G71.00 Muscular dystrophy, unspecified; E11.649 Type 2 diabetes mellitus with hypoglycemia without coma; E87.6 Hypokalemia; I50.9 Heart failure, unspecified; I11.0 Hypertensive heart disease with heart failure; E87.8 Other disorders of electrolyte and fluid balance, not elsewhere classified; Z20.828 Contact with and (suspected) exposure to other viral communicable diseases; Z90.710 Acquired absence of both cervix and uterus; Z88.6 Allergy status to analgesic agent; Z88.0 Allergy status to penicillin; Z88.2 Allergy status to sulfonamides; Z88.8 Allergy status to other drugs, medicaments and biological substances; Z87.891 Personal history of nicotine dependence; Z79.82 Long term (current) use of aspirin; Z79.899 Other long term (current) drug therapy
CPT/HCPCS: 10078; 10081; 10203; 10879

== ENCOUNTER 2020-03-04 08:24 | Inpatient (IN) | payer OTHER ==
[~2020-03-04] VITALS: Ht 152.4 cm; Wt 69.0 kg
--- NOTE | ~2020-03-04 | H ---
[facility] [place] [address] HISTORY AND PHYSICAL Name: APOLINAR VEGA Room #: 503-P ADM IN M.R.#: [id number] Admission: 03/04/20 Attend Phys: Pavel Jordan MD Discharge: Date of : 43 Report #: [id number] THIS REPORT FOR: cc: Criss Negron,Criss Carrillo,Pavel Hawthorne MD ~ CC: Pavel Negron DATE OF SERVICE: 03/04/2020 HISTORY AND PHYSICAL/POST-ADMISSION PHYSICIAN EVALUATION HISTORY OF PRESENT ILLNESS: The patient is a 75-year-old female who was originally admitted to [facility] on 02/22/2020 with shortness of breath, decreased oxygen saturation, cough was treated in the ICU, required intubation. She was since extubated after being on the ventilator from 02/23/2020 to 02/27/2020. She was able to be transitioned to nasal cannula. She has had multiple legal consultant physicians that have been involved, was found to have a nonbleeding gastric ulcer on EGD and did receive a transfusion. She was treated for the acute respiratory failure and aspiration pneumonia, was given IV steroids and IV antibiotics. She has been COVID-19 negative. Cardiac catheterization showed nonobstructive coronary artery disease. She was noted to have medical complexity with generalized debilitation and has now been admitted for acute in-hospital inpatient rehabilitation. PAST MEDICAL HISTORY: Includes hypertension, hyperlipidemia, GERD, bipolar, COPD, and insulin-dependent diabetes mellitus type 2. She has had a hysterectomy, left breast lumpectomy, degenerative arthritis. MEDICATIONS: Please see the full medication listing. ALLERGIES: She has multiple allergies, which are listed. SOCIAL HISTORY: Lives at [facility], ECF, use the front-wheeled walker. She had some assistance with ADLs prior. REVIEW OF SYSTEMS: She did not offer any complaints of chest pain, shortness of breath or abdominal discomfort. PHYSICAL EXAMINATION: GENERAL: She is a pleasant 75-year-old female in no obvious distress. CHEST: Sounded clear to auscultation. CARDIOVASCULAR: Regular rate and rhythm. ABDOMEN: Bowel sounds positive, nontender. NEUROLOGIC: She is somewhat overweight. [facility] [address] [place] [address] HISTORY AND PHYSICAL Name: APOLINAR VEGA Room #: 503-P ADM IN M.R.#: [id number] Admission: 03/04/20 Attend Phys: Pavel Jordan MD Discharge: Date of : 43 Report #: [id number] HEENT: Facies appeared symmetric. EXTREMITIES: Functional range of motion of the upper extremities. Strength is grade 4-/5. DTRs are trace to 1. Lower extremities, no focal calf swelling, functional range of motion, strength is grade 3+ to 4-/5. She is standby assistance trying to come to stand. She has been min assist for basic bed mobility. She has been unable to ambulate to this point. She does appear well motivated, however. ASSESSMENT: A 75-year-old female with the following problem list: 1. Medical complexity with generalized debilitation. 2. Acute respiratory failure, status post intubation from 02/23/2020 to 02/27/2020. 3. Aspiration pneumonia. 4. Gastric ulcer, nonbleeding. 5. History of cardiomyopathy. 6. Obstructive sleep apnea. 7. Diabetes mellitus type 2. 8. Hypertension. 9. Hyperlipidemia. 10. Bipolar disorder. PLAN: The patient has been admitted for acute in-hospital inpatient rehabilitation. From a post-admission physician evaluation perspective, there are no relevant changes since the preadmission screening. Please see the above review of prior and current medical and functional conditions and comorbidities. Please see the patient's previous and current functional status. As far as risk of complication, she has multiple medical comorbidities as noted above. Initial plan of care involves the interdisciplinary acute inpatient rehabilitation program. Prognosis is reasonably good with estimated length of stay probably at least 2 weeks pending progress, if she may warrant longer. Potential barriers would include her multiple medical comorbidities and decreased functional status. The patient meets diagnostic criteria for an acute in-hospital inpatient rehabilitation stay. She meets the medical necessity criteria. We will have the multiple legal consultant physicians continue to follow. She does have the tolerance for therapies and has appropriate discharge goals back to the home setting. By: [id number] Pavel Jordan MD /nt
--- NOTE | ~2020-03-04 | PLAN ---
[facility] [place] [address] REHAB UNIT PLAN OF CARE Name: APOLINAR VEGA Room #: 503-P ADM IN M.R.#: [id number] Admission: 03/04/20 Attend Phys: Pavel Jordan MD Discharge: Date of : 43 Report #: [id number] THIS REPORT FOR: //name// CC: Pavel Jordan Criss Negron DATE OF SERVICE: 03/05/2020 PROGRESS NOTE/OVERALL PLAN OF CARE SUBJECTIVE: The patient who was followed up with . She was in no distress. She was seen earlier. Afebrile, vital signs are stable. Potassium has been low and the hospitalist is to be notified. She is in good spirits and has been working hard in her therapies. In physical therapy, she is transferring with contact-guard assistance and is ambulated up to 90 feet with a front-wheeled walker with contact-guard assistance. In occupational therapy, she is standby assistance, upper body dressing and min assist, lower body dressing. Working on improving overall endurance. She does have speech therapy involved regarding a swallow evaluation. She has been on a mechanical soft diet. ASSESSMENT: 1. Medical complexity with generalized debilitation. 2. Acute respiratory failure, status post extubation. 3. Aspiration pneumonia. 4. Gastric ulcer, nonbleeding. 5. Cardiomyopathy. 6. Obstructive sleep apnea. 7. Diabetes mellitus type 2. 8. Hypertension. 9. Hyperlipidemia. 10. Bipolar disorder. PLAN: The overall plan of care is based on the preadmission screen, post-admission physician evaluation and information garnered from therapy assessments. 1. Estimated length of stay is probably around 10 days to 2 weeks pending progress. 2. Medical prognosis is reasonably good. 3. Anticipated interventions includes the interdisciplinary acute inpatient rehabilitation program. 4. Anticipated functional outcomes would be for the patient ideally prior functional level utilizing a front-wheeled walker, so she can return back to the home setting. 5. Discharge destination would be back living at [facility], where she was before. [facility] [address] [place] [address] REHAB UNIT PLAN OF CARE Name: APOLINAR VEGA Room #: 503-P ADM IN M.R.#: [id number] Admission: 03/04/20 Attend Phys: Pavel Jordan MD Discharge: Date of : 43 Report #: [id number] 6. Expected therapy by discipline includes PT, OT and speech 1 hour per day each 5 days a week throughout the duration of the acute inpatient rehabilitation program. We may be able to decrease the speech therapy some depending upon how she does with her swallowing and picking tech more PT and OT. By: [id number] Pavel oJrdan MD /PMT
[~2020-03-04 08:24] MED LIST changes: +ALEVE220 M1 PO; +BIOFREEZE118 ML TOP; +DIABETIC T100 MG/5 M PO; +DULCOLAX10 MG RECTAL; +FAMOTIDINE20 MG PO; +GABAPENTIN100 MG PO; +IPRAT-ALBUT 0.5-3 ML INH; +LEXAPRO20 MG PO; +LIDODERM1 EACH TOP; +LORATIDINE 10 M10 M1 PO; +LOSARTAN POTAS100 MG PO; +NASAL SPRAY30 ML NARES; +NEURONTIN300 MG PO; +NOVOLOG FL100 UNIT/M SUBQ; +PROMETH-CODEIN 65 ML PO; +SALINE NASAL M126 ML NARES; +SIMVASTATIN80 MG PO; +SINGULAIR 10 MG10 M1 PO; +SUPER THERAVIT1 EACH PO; +SYSTANE HYDRAT1 EACH EA. EYE; +TUMS ULTRA400 MG PO; +VESICARE10 M1 PO; +XANAX 0.25 MG0.25 MG PO
[2020-03-04] MEDS ORDERED: LASIX 40 MG TAB40 M1 PO (09:54)
[2020-03-04] MEDS ORDERED: CARVEDILOL12.5 MG PO (09:54)
[2020-03-04] MEDS ORDERED: ASPIR 8181 MG PO (09:54)
[2020-03-04] MEDS ORDERED: PANTOPRAZOLE SO40 M1 PO (11:15)
[2020-03-04] MEDS ORDERED: CLARITHROMYCIN250 M2 PO (11:15)
[2020-03-04] MEDS ORDERED: LANTUS SUBQ (11:15)
[2020-03-04] MEDS ORDERED: FLAGYL500 M1 PO (11:15)
[2020-03-04 14:30] VITALS: BP 120/46
[2020-03-04 19:35] VITALS: BP 129/65
[2020-03-05 06:21] LABS: HEMATOCRIT 30.2 % (37.0-47.0); HEMOGLOBIN 9.6 gm/dL (12.0-15.0); MCH 28.9 pg (26.0-34.0); MCHC 31.8 g/dL (28.0-37.0); MCV 90.9 fL (80.0-100.0); RBC 3.32 mil/uL (4.20-5.00); RDW 18.5 % (10.5-14.5); WBC 10.5 thou/uL (4.0-11.0)
[2020-03-05 06:43] LABS: CREATININE 0.4 mg/dL (0.6-1.0)
[2020-03-05 06:47] LABS: CALCIUM 5.8 mg/dL (8.5-10.1); POTASSIUM 2.6 mmol/L (3.5-5.1)
[2020-03-05 08:15] VITALS: BP 128/40
[2020-03-05 19:21] VITALS: BP 88/56
[2020-03-06 07:47] VITALS: BP 139/53
[2020-03-06 07:47] LABS: CREATININE 0.7 mg/dL (0.6-1.0); POTASSIUM 3.8 mmol/L (3.5-5.1)
[2020-03-06 07:50] LABS: CALCIUM 8.1 mg/dL (8.5-10.1)
[2020-03-06 16:07] VITALS: BP 128/53
[2020-03-06 19:00] VITALS: BP 116/31
[2020-03-07 07:20] VITALS: BP 122/43
[2020-03-07 19:20] VITALS: BP 107/67
[2020-03-08 07:20] VITALS: BP 133/44
[2020-03-08 19:00] VITALS: BP 121/35
[2020-03-09 08:00] VITALS: BP 113/47
[2020-03-09 19:00] VITALS: BP 110/42
[2020-03-10 06:21] LABS: ABSOLUTE NEUTROPHILS 3.6 thou/uL (1.4-8.2); BASOPHILS 0.3 % (0.0-2.0); EOSINOPHILS 2.5 % (0.0-3.0); HEMATOCRIT 28.1 % (37.0-47.0); HEMOGLOBIN 8.9 gm/dL (12.0-15.0); LYMPHOCYTES 30.3 % (24.0-44.0); MCH 28.7 pg (26.0-34.0); MCHC 31.7 g/dL (28.0-37.0); MCV 90.8 fL (80.0-100.0); MONOCYTES 10.7 % (1.0-8.0); PLATELET COUNT 171 thou/uL (150-400); POLYS 56.2 % (36.0-66.0); RBC 3.09 mil/uL (4.20-5.00); WBC 6.4 thou/uL (4.0-11.0)
[2020-03-10 06:40] LABS: CALCIUM 8.6 mg/dL (8.5-10.1); CREATININE 0.7 mg/dL (0.6-1.0)
[2020-03-10 08:00] VITALS: BP 89/41
[2020-03-10 08:41] VITALS: BP 92/44
[2020-03-10] MEDS ORDERED: ZANAFLEX4 MG PO (09:36)
[2020-03-10] MEDS ORDERED: GLIPIZIDE ER2.5 MG PO (09:36)
[2020-03-10] MEDS ORDERED: METFORMIN HCL500 MG PO (09:36)
[2020-03-10] MEDS ORDERED: FLAGYL500 M1 PO (10:22)
[2020-03-10] MEDS ORDERED: NOVOLOG100 UNIT/1 SUBQ (10:22)
[2020-03-10] MEDS ORDERED: CLARITHROMYCIN250 M2 PO (10:22)
[2020-03-10] MEDS ORDERED: LANTUS SUBQ (10:22)
--- NOTE | 2020-03-10 11:54 | HC ---
[facility] [place] [address] CONSULTATION Name: APOLINAR VEGA Room #: 503-P ADM IN M.R.#: [id number] Admission: 03/04/20 Attend Phys: Pavel Jordan MD Discharge: Date of : 43 Report #: [id number] THIS REPORT FOR: cc: Criss Negron,Marcia Davis MD ~ CC: Pavel Negron DATE OF SERVICE: 03/08/2020 ENDOCRINE CONSULTATION NOTE CONSULTING PHYSICIAN: Dr. Jordan. REASON FOR CONSULTATION: Uncontrolled type 2 diabetes mellitus. HISTORY OF PRESENT ILLNESS: This is a 75-year-old female patient whose medical background is significant for multiple health issues including type 2 diabetes mellitus, hypertension, hyperlipidemia, bipolar disorder, COPD in addition to a history of basal cell carcinoma. The patient initially presented to [facility] on 02/21 with shortness of breath and cough and had later developed respiratory failure, which prompted mechanical ventilation. The patient was intubated between 02/22 and 02/26 and has since stabilized. Further complicating her hospital course was the finding of a nonbleeding gastric ulcer. She also underwent a coronary angiogram on 03/03, which showed nonobstructive CAD with the ultimate recommendation for medical therapy. The patient has been a type 2 diabetic for many years and lives at the [facility] and recalls having been treated with multiple injections of insulin every day. Having reviewed her outpatient physical records, it seems that she is maintained on a combination of Levemir insulin up to 60 units at bedtime in addition to human R insulin at 6 units t.i.d. a.c. as well as glimepiride 2 mg daily. She is known to have diabetic neuropathy for which she is treated with gabapentin 200 mg daily, but is not aware of issues pertaining to diabetic nephropathy, retinopathy or CAD. The patient is also hypertensive and is treated with losartan 100 mg daily. She is known to have hyperlipidemia and is treated with simvastatin 40 mg at bedtime. REVIEW OF SYSTEMS: CONSTITUTIONAL: Fatigue, tiredness, but not fever or chills or body weight changes. HEENT: Negative for sore throat, sinus pain or ear drainage. PULMONARY: Shortness of breath and cough on arrival, now feeling much better. [address] [address] CONSULTATION Name: APOLINAR VEGA Room #: 503-P ADM IN M.R.#: [id number] Admission: 03/04/20 Attend Phys: Pavel Jordan MD Discharge: Date of : 43 Report #: [id number] CARDIOLOGY: Negative for chest pain, palpitations, syncope or presyncope. GASTROINTESTINAL: Negative for abdominal pain, nausea, vomiting or changes in bowel movement frequency. NEUROLOGY: Noted for baseline issues with diabetic neuropathy that do well on the current gabapentin therapy, no seizure activity, loss of consciousness or severe frequent headaches. DERMATOLOGY: Negative for rash, ulceration or discoloration. Otherwise, review of systems noncontributory unless mentioned in HPI. PAST MEDICAL HISTORY: 1. Type 2 diabetes mellitus. 2. Hypertension. 3. Hyperlipidemia. 4. GERD. 5. Recent issues of respiratory failure, status post intubation. 6. Peptic ulcer disease involving her stomach. 7. Depression. 8. Bipolar disorder. 9. COPD. 10. Obstructive sleep apnea. 11. Obesity. 12. History of basal cell carcinoma. OUTPATIENT MEDICATIONS: Include Levemir insulin 30 5-6 units at bedtime, anastrozole 1 mg daily, glimepiride 2 mg daily, losartan 100 mg daily, Veramyst nasal b.i.d., Flexeril 10 mg t.i.d., gabapentin 200 mg daily, gabapentin 300 mg at bedtime, Xanax 0.25 mg at bedtime p.r.n. anxiety, Lexapro 20 mg at bedtime, Aleve q. 12 hours p.r.n., Singulair 10 mg at bedtime, loratadine 10 mg daily, Depakote ER 250 mg at bedtime and 500 mg at bedtime, famotidine 20 mg b.i.d., NovoLog 6 units t.i.d. a.c., multivitamin daily, calcium carbonate daily, albuterol q. 4 hours p.r.n., simvastatin 40 mg at bedtime, topiramate 1 tab b.i.d. 25 mg, Imodium p.r.n. ALLERGIES: ADHESIVE TAPE, CODEINE, PENICILLIN, SHRIMP, SULFA, BUPROPION. FAMILY HISTORY: Noncontributory. SOCIAL HISTORY: The patient denies use of tobacco, alcohol or illicit drugs. PHYSICAL EXAMINATION: GENERAL: Pleasant female patient who is not in apparent distress. VITAL SIGNS: Blood pressure is 133/44 mmHg, heart rate is 73 beats per minute, respirations 20 per minute, temperature 37.0 Celsius degrees. CONSTITUTIONAL: The patient is lying in bed, appears comfortable, not in apparent distress. [facility] [address] [place] [address] CONSULTATION Name: APOLINAR VEGA Room #: 503-P [facility] IN M.R.#: [id number] Admission: 03/04/20 Attend Phys: Pavel Jordan MD Discharge: Date of : 43 Report #: [id number] HEENT: Anicteric sclerae. Intact extraocular motions. NECK: Supple, without JVD, carotid bruits or lymphadenopathy. I do not appreciate thyromegaly. CHEST: Noted for moderate entry bilaterally with scattered rales. No wheezes or crackles. HEART: Regular rate and rhythm without murmurs or gallops. ABDOMEN: Soft, lax, no tenderness, no organomegaly. Has active bowel sounds. EXTREMITIES: Lower extremity exam is noted for trace ankle edema. No skin breaks or ulcerations. Pedal pulses are appreciated. NEUROLOGIC: Awake, alert and oriented to time, place and person. The remainder of her examination is nonfocal. PSYCHIATRIC: Pleasant, interactive. Normal thought process. Normal mood and affect. LABORATORY DATA: Blood glucose values over the past 24 hours ranged from 66-204 mg/dL. Sodium 136, potassium 3.8, chloride 100, CO2 of 33, anion gap 3, BUN 14, creatinine 0.7. AST 41. Amylase 23, lipase 160, total bilirubin 0.3. Calcium 8.1, magnesium 1.9. Alkaline phosphatase 79, ALT 30, total protein 6.5, albumin 2.8, EGFR 81. Lactic acid 1.0. Troponin 0.34. BNP 4413. White blood count 10.5, hemoglobin 9.6, hematocrit 30.2, platelets 193. TSH 2.08 in 2013. Hemoglobin A1c 5.8%. ASSESSMENT AND PLAN: 1. Type 2 diabetes mellitus. The patient has a longstanding history of type 2 diabetes mellitus, marked by the need for high dose insulin therapy at her facility. Here, she is maintained on a combination of Glucotrol 2.5 mg with breakfast, Lantus insulin 20 units at bedtime in addition to Humalog supplemental scale, moderate intensity. Her blood glucose values are noted for a tendency to running over the high end of range with the exception of one hypoglycemic reading recorded yesterday. I would like to maintain the current Glucotrol and Lantus doses, but would also like to introduce metformin 500 mg b.i.d., especially that her kidney function is rather permissible of this use. Blood glucose monitoring will continue a.c. and at bedtime and further dose adjustments will be introduced accordingly. 2. Hypertension. The patient's level of blood pressure control is adequate, she is to continue with the current regimen. 3. Hyperlipidemia. The patient is maintained on atorvastatin therapy and tolerates it well, she is to continue with the same. 4. Diabetic neuropathy. The patient is doing well on the current gabapentin regimen, she is to continue with the same. I have reviewed the patient's clinical care notes, laboratory data, and other pertinent clinical information, both past and present for more than 35 minutes, in addition to my encounter time with the patient. [address] [address] CONSULTATION Name: APOLINAR VEGA Room #: 503-P [facility] IN M.R.#: [id number] Admission: 03/04/20 Attend Phys: Pavel Jordan MD Discharge: Date of : 43 Report #: [id number] I appreciate this consultation by Dr. Jordan. <ELECTRONICALLY SIGNED> By: Marcia Chaney MD 03/10/20 1154 [id number] [id number] Marcia Chaney MD /nt
== END 2020-03-10 12:31 | DRG 947 ==
LOC: SBH 08:24
PROVIDERS: Hospitalist; Nurse Practitioner; Nurse Practitioner Family; ADMIT Physical Medicine & Rehabilitation; ATTEND Physical Medicine & Rehabilitation
DX: R53.81 Other malaise (principal); J96.00 Acute respiratory failure, unspecified whether with hypoxia or hypercapnia; J69.0 Pneumonitis due to inhalation of food and vomit; I42.9 Cardiomyopathy, unspecified; I10 Essential (primary) hypertension; E78.5 Hyperlipidemia, unspecified; K21.9 Gastro-esophageal reflux disease without esophagitis; J44.9 Chronic obstructive pulmonary disease, unspecified; G47.33 Obstructive sleep apnea (adult) (pediatric); M19.90 Unspecified osteoarthritis, unspecified site; F31.9 Bipolar disorder, unspecified; G71.00 Muscular dystrophy, unspecified; K25.9 Gastric ulcer, unspecified as acute or chronic, without hemorrhage or perforation; E66.9 Obesity, unspecified; E11.40 Type 2 diabetes mellitus with diabetic neuropathy, unspecified; Z20.828 Contact with and (suspected) exposure to other viral communicable diseases; Z90.710 Acquired absence of both cervix and uterus; Z88.6 Allergy status to analgesic agent; Z88.0 Allergy status to penicillin; Z88.8 Allergy status to other drugs, medicaments and biological substances; Z79.4 Long term (current) use of insulin; Z87.11 Personal history of peptic ulcer disease; Z68.29 Body mass index [BMI] 29.0-29.9, adult
CPT/HCPCS: 10112

== ENCOUNTER 2020-03-18 17:16 | Inpatient (IN) | payer OTHER ==
[~2020-03-18] VITALS: Ht 152.4 cm; Wt 64.5 kg
[~2020-03-18 17:16] MED LIST changes: +ASPIR 8181 MG PO; +CARVEDILOL12.5 MG PO; +CLARITHROMYCIN250 M2 PO; +DEPAKOTE ER500 M1 PO; +FLAGYL500 M1 PO; +GLIPIZIDE ER2.5 MG PO; +LANTUS SUBQ; +LASIX 40 MG TAB40 M1 PO; +METFORMIN HCL500 MG PO; +PANTOPRAZOLE SO40 M1 PO; +ZANAFLEX4 MG PO
[2020-03-18 17:19] VITALS: BP 111/41
[2020-03-18 18:02] LABS: ABSOLUTE NEUTROPHILS 4.2 thou/uL (1.4-8.2); BASOPHILS 0.8 % (0.0-2.0); HEMATOCRIT 28.7 % (37.0-47.0); HEMOGLOBIN 9.2 gm/dL (12.0-15.0); LYMPHOCYTES 21.3 % (24.0-44.0); MCH 28.8 pg (26.0-34.0); MCHC 32.1 g/dL (28.0-37.0); MCV 89.9 fL (80.0-100.0); PLATELET COUNT 173 thou/uL (150-400); POLYS 64.9 % (36.0-66.0); RDW 17.5 % (10.5-14.5); WBC 6.4 thou/uL (4.0-11.0)
[2020-03-18 18:04] LABS: ANION GAP 4 mmol/L (7-16); BUN 18 mg/dL (7-18); CALCIUM 8.4 mg/dL (8.5-10.1); CHLORIDE 99 mmol/L (98-107); CO2 37 mmol/L (21-32); CREATININE 1.8 mg/dL (0.6-1.0); GLUCOSE 106 mg/dL (74-106); POTASSIUM 3.9 mmol/L (3.5-5.1); SODIUM 140 mmol/L (136-145)
[2020-03-18 18:14] LABS: ALBUMIN 2.6 g/dL (3.4-5.0); SGOT 20 U/L (15-37); SGPT 12 U/L (30-65); TOTAL BILIRUBIN 0.4 mg/dL (0.2-1.0); TOTAL PROTEIN 6.6 g/dL (6.4-8.2); TROPONIN-I <0.06 ng/mL (<0.06)
[2020-03-18 19:31] LABS: SALICYLATE < 2.8 mg/dL (2.8-20.0)
[2020-03-18 20:37] LABS: URINE BILIRUBIN NEGATIVE (Negative); URINE BLOOD NEGATIVE (Negative); URINE CLARITY SL CLOUDY; URINE COLOR YELLOW; URINE GLUCOSE-RANDOM* NEGATIVE (Negative); URINE KETONES NEGATIVE (Negative); URINE NITRITE-REFLEX NEGATIVE (Negative); URINE PROTEIN (DIPSTICK) NEGATIVE (Negative); URINE SPECIFIC GRAVITY 1.025 (1.005-1.035); URINE UROBILINOGEN 0.2 E.U./dl (0.2-1.0)
[2020-03-18 20:38] LABS: URINE LEUKOCYTES-REFLEX 2+ (Negative)
[2020-03-18 20:54] LABS: AMP/METHAMP Negative (Negative); BARBITURATES Negative (Negative); BENZODIAZEPINES POSITIVE (Negative); COCAINE Negative (Negative); METHADONE Negative (Negative); OPIATES POSITIVE (Negative); PCP Negative (Negative)
[2020-03-18 21:36] VITALS: BP 108/51
--- NOTE | 2020-03-18 21:51 | NUR ---
CALLED 4 UNIT TO GIVE REPORT AND WAS PUT ON HOLD FOR OVER 10 MINUTES. CALLED NOW AGAIN AND NO ANSWER
--- NOTE | 2020-03-18 21:58 | NUR ---
TALKED WITH JUAN BROTHERS (PT'S DAUGHTER AND DPOA) GAVE HER AN UPDATE ON PT AND ROOM NUMBER.
[2020-03-18 22:03] VITALS: BP 129/39
[2020-03-18 22:15] LABS: SQUAMOUS None Seen /LPF (0-3)
[2020-03-18 22:16] LABS: BACTERIA-REFLEX None Seen /HPF (None Seen); CRYSTALS None Seen /LPF (None Seen); MUCUS None Seen strn/LPF (None Seen); URINE RBC None Seen /HPF (0-2); YEAST-REFLEX Present (None Seen)
[2020-03-18 22:24] LABS: CASTS None Seen /LPF (None Seen)
[2020-03-19 00:26] VITALS: BP 113/51
--- NOTE | 2020-03-19 04:54 | NUR ---
NEW ADMISSION FOR WEAKNESS AND FATIGUE. PATIENT HAD LOW BLOOD SUGAR OF 44 AFTER SNACKS AND ORANGE JUICE BLOOD SUGAR WAS 84. B2B OUTSIDE SALES REPRESENTATIVE NOTIFIED NO NEW ORDERS. PATIENT NEEDS MINIMUM ASSISTANCE WITH ADL, BED MOBILITY, TRANSFER AND TOILETING. FALL PRECAUTION IN PLACE. PATIENT IN BED ASLEEP AT THIS TIME BREATHING REGULAR AND UNLABOURED.
[2020-03-19 06:04] LABS: HEMATOCRIT 29.6 % (37.0-47.0); HEMOGLOBIN 9.5 gm/dL (12.0-15.0); MCV 90.6 fL (80.0-100.0); RBC 3.27 mil/uL (4.20-5.00); RDW 16.9 % (10.5-14.5); WBC 6.7 thou/uL (4.0-11.0)
[2020-03-19 06:20] LABS: CALCIUM 8.1 mg/dL (8.5-10.1); CREATININE 1.5 mg/dL (0.6-1.0); MAGNESIUM 1.5 mg/dL (1.8-2.4); POTASSIUM 4.4 mmol/L (3.5-5.1)
[2020-03-19 07:33] VITALS: BP 129/64
[2020-03-19 15:05] VITALS: BP 138/50
[2020-03-19 20:24] VITALS: BP 133/54
--- NOTE | 2020-03-19 20:37 | NUR ---
Assumed pt care this am, blood sugar checks done and medication given as per emar. Pt is weak and gait is not steady, uses the bad shelley. Alert and oriented x 2 to 3. On 3L vis NC of 02, Diet and medications are tolerated well. POC followed with no signs or verbalizations of distress noted. SCD's on.
--- NOTE | 2020-03-20 04:11 | NUR ---
ASSUMED CARE OF PT AT 1900HRS. PT IS AOX3 AND LETS NEEDS BE KNOWN. FALL PRECAUTION IN PLACE. PT DENIED NAUSEA OR SOA. PT TOOK ALL MEDS WHOLE WITH APPLESAUSE. IVF CONTINUED. VSS AND NO S/S OF ACUTE DISTRESS. WILL CONTINUE TO MONITOR FOR CHANGES.
[2020-03-20 07:39] VITALS: BP 155/56
[2020-03-20 15:56] VITALS: BP 155/63
[2020-03-20 19:56] VITALS: BP 161/61
--- NOTE | 2020-03-20 21:30 | NUR ---
Assumed pt care this am, diet and medications are well tolerated. POC followed witn no signs or verbalizations of distress noted. Daughter at the bedside in the om. endorsed to the night nurse.
--- NOTE | 2020-03-20 22:57 | NUR ---
PATIENT AOX3 CONFUSED AND FORGETFUL AT TIMES. PATIENT DENIED PAIN OR DISCOMFORT. PATIENT BEING TRANSFERED TO . REPORT GIVEN TO 4S NURSE , PATIENT NOTIFIED FOR TRANSFER. DPOA NOTIFIED.
--- NOTE | 2020-03-21 05:33 | NUR ---
PATIENT ARRIVED ON UNIT AT 0010 FROM 4W VIA BED ACCOMPAINIED BY 4W PERSONEL. PATIENT ALERT AND ORIENTED X PERSON, PLACE AND TIME. USES BEDPAN BUT IS ALSO SOMETIMES INCONT. HAS O2 AT 3L/NC AND WEARS A C-PAP AT HS. C/O HEADACHE, MED GIVEN. SLEPT MOST OF NIGHT.
--- NOTE | 2020-03-21 08:06 | EKG ---
[facility] [place] [address] ELECTROCARDIOGRAM REPORT Name: APOLINAR VEGA Room #: 440-P ADM IN M.R.#: [id number] Admission: 03/18/20 Attend Phys: Braulio William MD Discharge: Date of : 43 Report #: [id number] THIS REPORT FOR: cc: Criss Negron,Criss Desai,Julio Mendieta MD [facility] ~ THIS REPORT FOR: //name// [facility] ED Test Date: 2020-03-18 Test Time: 18:00:44 Pat Name: APOLINAR VEGA Department: Room: 440 Gender: F Reading Assistant: DARIANA : 1945 Requested By: Tony Martin Order Number: [id number] MD: Julio Patel Measurements Intervals [place] Rate: 65 P: 48 NH: 157 QRS: -19 QRSD: 111 T: -21 QT: 486 QTc: 506 Interpretive Statements Sinus rhythm RSR' in V1 or V2, probably normal variant Left ventricular hypertrophy Nonspecific T abnormalities, inferior leads Borderline prolonged QT interval Compared to ECG 02/22/2020 19:59:34 Nonspecific change in the T wave abnormality Electronically Signed On 03-21-2020 8:06:05 CDT by Julio Patel [email or web address] <ELECTRONICALLY SIGNED> By: Julio Patel MD, [facility] 03/21/20 0806 1800 1800 Julio Patel MD, [facility] /EPI
[2020-03-21 10:29] VITALS: BP 154/51
--- NOTE | 2020-03-21 13:59 | NUR ---
ASSESSMENT: CM REVIEWED CHART AND SPOKE WITH ATTENDING. PT IS FROM [facility]. PT WAS RECENTLY HERE AT [facility] AND HAD A STAY ON 5N ACUTE REHAB PRIOR TO GOING BACK TO [facility]. PT IS ADMITTED DUE TO YEN/UTI. CM SPOKE WITH PATIENTS YAKOV LEAL TO CONFIRM INFORMATION AND PLANS ARE FOR PATIENT TO RETURN TO [facility] UPON DISCHARGE. CM SPOKE WITH JELLY AT [facility] TO UPDATE AND FAXED CLINICAL INFORMATION. SHE REPORTS PATIENT WILL NEED A NEGATIVE COVID TEST RESULT PRIOR TO COMING BACK TO THE FACILITY. CM NOTIFIED ATTENDING, TEST IS ORDERED AND CM NOTIFIED BEDSIDE RN. CM WILL CONTINUE TO FOLLOW TEST RESULT FOR COVID WILL NEED TO BE IN PRIOR TO DISCHARGING BACK TO FACILITY. CM WILL AWAIT TEST RESULT.
--- NOTE | 2020-03-21 19:01 | NUR ---
PT IS AOX2-3, CONFUSED AT TIMES. PT VSS, NO DISTRESS NOTED AT THIS TIME. PT TAKES PILLS WHOLE WITH WATER. CALL APPROPRIATELY. WILL CONTINUE TO MONITOR.
[2020-03-21 20:38] VITALS: BP 173/53
--- NOTE | 2020-03-22 05:01 | NUR ---
RECEIVED CARE OF THIS PATIENT AT 1900. PATIENT ALERT AND ORIENTED TO PERSON, PLACE AND TIME BUT NOT SITUATION. PATIENT IS IMPULSIVE. GETS UP BY SELF. INC OF B&B. ACCJOSEECK WAS 160, RECEIVED 3 UNITS LISPRO INSULIN. DENIES PAIN. SLEPT MOST OF NIGHT.
[2020-03-22 07:20] VITALS: BP 156/57
[2020-03-22 10:56] LABS: CALCIUM 8.9 mg/dL (8.5-10.1); CREATININE 0.8 mg/dL (0.6-1.0); MAGNESIUM 1.2 mg/dL (1.8-2.4)
[2020-03-22 10:57] LABS: POTASSIUM 2.8 mmol/L (3.5-5.1)
--- NOTE | 2020-03-22 14:38 | NUR ---
on-going assessment: CM REVIEWED CHART. PATIENT IS FROM [facility] AND THEY ARE REQUIRING A NEGATIVE COVID TEST PRIOR TO ADMISSION. COVID TEST IS STILL PENDING AT THIS TIME. PTS POTASSIUM IS ALSO 2.8. CM UPDATED [facility] AND WILL CONTINUE TO FOLLOW.
[2020-03-22 16:19] VITALS: BP 138/55
[2020-03-22 17:01] VITALS: BP 156/57
--- NOTE | 2020-03-22 17:47 | NUR ---
PT IS AOX2-3, VSS, NO S/S OF DISTRESS. CALL LIGHT IN REACH. FALL PRECAUTIONS IN PLACE, WILL CONTINUE TO MONITOR.
[2020-03-22 20:34] VITALS: BP 146/54
--- NOTE | 2020-03-23 00:30 | NUR ---
Care of patient assumed at 1915. Patient is sittin gin recliner in her room. Pleasant and cooperative. Assessment done as per charting. Patient endorses mild shoulder pain (4/10) but declines any interventions. Compliant with HS meds. BG 203 and patient receives 4u insulin as per sliding scale ordered. Cotninues to sit in recliner watching TV.
[2020-03-23 11:28] VITALS: BP 156/63
--- NOTE | 2020-03-23 15:49 | NUR ---
ON-GOING ASSESSMENT: CM REVIEWED CHART AND SPOKE WITH PATIENTS YAKOV MARTINEZ. CM DISCUSSED POSSIBLE PLANS OF PT DISCHARGING TODAY BACK TO [facility]. DAUGHTER REPORTS SHE IS WORRIED PATIENT WILL GET BACK THERE AND FALL AND STATES SHE ORIGINALLY WANTED HER TO RETURN THERE BUT FEELS SHE MAY BENEFIT FROM SNF PRIOR TO DISCHARGE BACK THERE. CM REACHED OUT TO YVETTE DUARTE AT [facility] WHO HAD THEIR DIRECTOR SPEAK WITH PATIENTS DAUGHTER ABOUT PTS NEEDS AND SHE WISHES TO PURSUE SNF PLACEMENT PRIOR TO [facility]. CM PROVIDED PATIENTS YAKOV MARTINEZ A LIST OF FACILITES TO REVIEW AND NOTIFIED ATTENDING. DAUGHTER REPORTS WANTING A REFERRAL TO [address]. CM FAXED A REFERRAL AND LEFT A VM WITH ADMISSIONS AND AWAITING A CALL BACK AT THIS TIME. CM WILL CONTINUE TO FOLLOW.
--- NOTE | 2020-03-23 18:18 | NUR ---
PT IS AOX2, VSS, CALLS APPROPRIATELY FOR ASSISTANCE. NO DISTRESS NOTED. DAUGHTER AT BEDSIDE MOST OF SHIFT. PT APPETITE IS FAIR. CALL LIGHT IN REACH. WILL CONTINUE TO MONITOR.
[2020-03-23 20:32] VITALS: BP 149/53
--- NOTE | 2020-03-24 02:41 | NUR ---
ASSESSED AT START OF SHIFT 1900. PT RESTING IN BED. EVENING MEDS GIVEN AND PT MORENITA IT WELL. TYLENOL GIVEN FOR SHOULDER PAIN. PT UP WITH ASSIST TO BSC. FALL PREC IN PLACE AND CALL LIGHT IN REACH WILL CONT TO MONITOR
[2020-03-24 04:59] VITALS: BP 146/46
[2020-03-24 06:46] LABS: HEMATOCRIT 28.1 % (37.0-47.0); MCH 28.9 pg (26.0-34.0); MCHC 32.1 g/dL (28.0-37.0); RBC 3.12 mil/uL (4.20-5.00); RDW 17.7 % (10.5-14.5); WBC 4.7 thou/uL (4.0-11.0)
[2020-03-24 06:54] LABS: CALCIUM 8.4 mg/dL (8.5-10.1); CREATININE 0.6 mg/dL (0.6-1.0); MAGNESIUM 1.5 mg/dL (1.8-2.4); POTASSIUM 3.5 mmol/L (3.5-5.1)
[2020-03-24 08:40] VITALS: BP 151/40
[2020-03-24 13:40] VITALS: BP 151/40
--- NOTE | 2020-03-24 14:13 | NUR ---
PT IS A&OX2, VSS, ACHS, INSULIN ADMINISTERED, MEDS CRUSHED WITH APPLESAUCE, K+ GIVEN WHOLE, UP WITH 1 PERSON ASSIST, NO S/S OF DISTRESS, FORGETFULL AND CONFUSED AT TIMES, FALL PRECAUTIONS IN PLACE, WILL CONTINUE TO MONITOR. PT MAY D/C TODAY TO [facility].
[2020-03-24] MEDS ORDERED: PANTOPRAZOLE SO40 M1 PO (14:38)
[2020-03-24] MEDS ORDERED: MAGNESIUM400 MG PO (14:38)
[2020-03-24] MEDS ORDERED: ACETAMINOPHEN325 M1 PO (14:38)
[2020-03-24] MEDS ORDERED: PULMICORT0.5 MG/21 INH (14:38)
--- NOTE | 2020-03-24 15:00 | NUR ---
ON-GOING ASSESSMENT: CM REVIEWED CHART AND SPOKE WITH PATIENT AND HER DAUGHTER JUAN. CM REACHED OUT TO [employer] WHO REPORTS THEY CAN ACCEPT PATIENT FOR SNF TODAY. PT AND DAUGHTER ARE AGREEABLE WITH PLAN. CM SPOKE WITH LIABRENDA MAXIMILIAN AND SHE REPORTS THEY HAVE NO ACTIVE COVID CASES, CM RELAYED INFO TO PATIENT AND HER DAUGHTER. CHART COPY WAS ORDERED. CM NOTIFIED GERALD CRAWFORD AT [facility] AND SHE CONFIRMS THEY WILL HOLD HER BED WHILE SHE IS AT SNF, CM NOTIFIED PT AND HER DAUGHTER. DISCHARGE ORDERS WERE FAxed to FACILITY AND CONFIRMED THEY RECEIVED IT. TRANSPORTATION WAS ARRANGED FOR 1500. BEDSIDE RN, PT , AND HER DAUGHTER ARE AWARE. NO FURTHER NEEDS FROM CM AT THIS TIME. BEDSIDE RN HAS THE NUMBER FOR REPORT. CASE CLOSED.
== END 2020-03-24 15:26 | DRG 682 ==
LOC: ER 17:16 → EROBS 20:53 → 4S 20:53 → EROBS 22:24 → 4W 23:13 → 4S 03-21 00:55
PROVIDERS: Internal Medicine; Nurse Practitioner Family; Physician Assistant; ADMIT Hospitalist; ATTEND Hospitalist
DX: N17.0 Acute kidney failure with tubular necrosis (principal); G92 Toxic encephalopathy; E43 Unspecified severe protein-calorie malnutrition; N39.0 Urinary tract infection, site not specified; J96.11 Chronic respiratory failure with hypoxia; I42.9 Cardiomyopathy, unspecified; Z20.828 Contact with and (suspected) exposure to other viral communicable diseases; M19.90 Unspecified osteoarthritis, unspecified site; I10 Essential (primary) hypertension; E78.5 Hyperlipidemia, unspecified; E11.9 Type 2 diabetes mellitus without complications; J44.9 Chronic obstructive pulmonary disease, unspecified; G47.33 Obstructive sleep apnea (adult) (pediatric); K21.9 Gastro-esophageal reflux disease without esophagitis; M62.84 Sarcopenia; F32.9 Major depressive disorder, single episode, unspecified; R63.4 Abnormal weight loss; E66.01 Morbid (severe) obesity due to excess calories; Z90.710 Acquired absence of both cervix and uterus; Z79.4 Long term (current) use of insulin; Z88.6 Allergy status to analgesic agent; Z88.0 Allergy status to penicillin; Z88.8 Allergy status to other drugs, medicaments and biological substances; Z85.3 Personal history of malignant neoplasm of breast; Z79.82 Long term (current) use of aspirin; Z79.899 Other long term (current) drug therapy; Z68.27 Body mass index [BMI] 27.0-27.9, adult
CPT/HCPCS: 10040; 10102

== ENCOUNTER 2021-01-27 10:49 | Inpatient (IN) | payer OTHER ==
[~2021-01-27] VITALS: Ht 157.5 cm; Wt 63.6 kg
--- NOTE | ~2021-01-27 | EMS ---
[facility] [address] [place] [address] EMS Patient Care Report Name: APOLINAR VEGA Room #: 219-P ADM IN M.R.#: [id number] Admission: 01/27/21 Attend Phys: Valentine Snow MD Discharge: Date of : 43 Report #: [id number] THIS REPORT FOR: //name// Report Transmitted: 01/27/2021 16:13 EMS Care Summary [place], [place]/[facility] Incident [id number] @ 01/27/2021 09:58 Incident Location [address] Patient APOLINAR VEGA Female, 76 Years 1945 Patient Address [address] [place] [address] Patient History Asthma,Chronic Obstructive Pulmonary Disease (COPD),Parkinson's Disease,Hyperlipidemia,Gastro-Esophageal Reflux Disease (GERD),Bronchitis Chronic,Bipolar II Disorder,Depression,Anemia,Neuropathy,Chronic Pain,Sleep Apnea,Type 2 Diabetes,Chronic Respiratory Failure,Respiratory Failure,Myocardial Infarction (VT),Cardiomyopathy, Patient Allergies Codeine,Penicillin allergy,Sulfa,Other drug allergy, Patient Medications Bisacodyl, Atrovent, Tylenol, Ondansetron, Promethazine, Glucagon, Lasix, Simvastatin, Novolog, Eliana, Carvedilol, Depakote, Singulair, Iron, Aspirin, Protonix, Gabapentin, Loperamide, Ventolin, Albuterol, Chief Complaint SOA Disposition Transported No Lights/[place] Dispatch Reason Breathing Problem Transported To [facility] [address] [place] [address] EMS Patient Care Report Name: APOLINAR VEGA Room #: 219-P ADM IN M.R.#: [id number] Admission: 01/27/21 Attend Phys: Valentine Snow MD Discharge: Date of : 43 Report #: [id number] [facility] Narrative DISPATCHED EMERGENCY ON A BREATHING PROBLEM. 76 Y/O FEMALE SITTING IN RECLINER CHAIR IN ROOM OF [facility] APPEARING IN NO IMMEDIATE DISTRESS. GCS 15 AND A/OX4. HAS CONSENTED FOR TX AND TRANSPORTATION. REPORT RECEIVED FROM RN STATING THAT PT HAS BEEN COUGING MORE THEN SHE USUALLY DOES AND HER OXYGEN SATURATION WAS 75% ON ROOM AIR WHEN SHE CHECKED IT. RN ADMINISTERED AN ALBUTEROL TX PRIOR TO EMS ARRIVAL. SHE THEN PLACED HER ON A N/C AT 3 LPM AFTER ALBUTEROL TX. STATES THAT PT'S OXYGEN SATURATION IMPROVED TO 94%. PT STATES SHE IS STILL HAVING SOME SOA AND A COUGH BUT IS FEELING BETTER. SPEAKING IN FULL SENTENCES AND R/R DOES NOT APPEAR LABORED. PT HAS HISTORY OF CHRONIC COUGH. PT CONTINUED ON OXYGEN VIA N/C AT 3 LPM. MOVED WITHOUT INCIDENT TO AMBULANCE VIA STRETCHER. PLACED ON MONITOR AND V/S'S OBTAINED. IV ESTABLISHED. TRANSPORTED TO [facility] PER PT REQUEST. REASSESSED ENROUTE. REMAINS GCS 15 AND A/OX4. PT STILL SPEAKING IN FULL SENTENCES. V/S'S CONTINOUSLY MONITORED ENROUTE. OXYGEN SATURATION IMPROVED. REPORT CALLED TO HOSPITAL. MOVED WITHOUT INCIDENT TO ER HOSPITAL BED 6. PT CARE TRANSFERRED TO ED RN. Initial Vitals @10:26P: 91,SpO2: 98, @PTAP: 73,BP: 158/80,GCS: 15,Glucose: 293,SpO2: 75, @10:18P: 74,R: 18,BP: 146/116,Pain: 0/10,GCS: 15,CO: 0,SpO2: 95,Revised Trauma: 12, @10:25P: 73,R: 18,BP: 148/104,Pain: 0/10,GCS: 15,SpO2: 95,Revised Trauma: 12, @10:38P: 72,R: 16,BP: 101/59,GCS: 15,SpO2: 96,Revised Trauma: 12,VT Suspected: false Assessments @10:08MENTAL:Person Oriented,Time Oriented,Place Oriented,Event Oriented,SKIN:HEENT:Eyes: Right Pupil: 4-mm,Eyes: Left Pupil: 4-mm,Head/Face: No Abnormalities,Neck/Airway: No Abnormalities,LUNG SOUNDS:General: No Abnormalities,ABDOMEN:General: No Abnormalities,PELVIS//GI:EXTREMITIES:Capillary Refill: Right Upper: < 2 Sec,Capillary Refill: Right Lower: < 2 Sec,Capillary Refill: Left Upper: < 2 Sec,Capillary Refill: Left Lower: < 2 Sec,Left Arm: No Abnormalities,Right Arm: No Abnormalities,Left Leg: No Abnormalities,Right Leg: No Abnormalities,PULSE:Radial: 2+ Normal,NEURO:No Abnormalities,@10:35MENTAL:Event Oriented,Time Oriented,Person Oriented,Place Oriented,SKIN:HEENT:Head/Face: No Abnormalities,Neck/Airway: No Abnormalities,LUNG SOUNDS:ABDOMEN:PELVIS//GI:EXTREMITIES:Capillary Refill: Right Upper: < 2 Sec,Capillary Refill: Left Upper: < 2 Sec,Left Arm: No Abnormalities,Right Arm: No Abnormalities,PULSE:Radial: 2+ Normal,NEURO:No Abnormalities, Impression Shortness of breath [facility] [address] [place] [address] EMS Patient Care Report Name: APOLINAR VEGA Room #: 219-P ADM IN M.R.#: [id number] Admission: 01/27/21 Attend Phys: Valentine Snow MD Discharge: Date of : 43 Report #: [id number] Procedures @10:08ALS AssessmentResponse: UnchangedSucceeded@PTAAlbuterol - 2.5 Milligrams (mg) - NebulizedResponse: Improved@PTAOxygen FlowRate: 3 Device: Nasal Cannula (NC) Response: ImprovedSucceeded@10:26Saline Lock 10cc (18 ga) Site: Antecubital-LeftResponse: UnchangedSucceeded@10:263-Lead ECGResponse: UnchangedSucceeded@10:12StretcherResponse: Unchanged@10:13Oxygen FlowRate: 3 Device: Nasal Cannula (NC) Response: ImprovedSucceeded Timeline 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,Albuterol - 2.5 Milligrams (mg) - Nebulized,Response: Improved 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,Oxygen FlowRate: 3 Device: Nasal Cannula (NC) Response: ImprovedSucceeded, 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,BP: 158/80 M,PULSE: 73,RR: R,SPO2: 75 Ox,ETCO2: ,B,PAIN: ,GCS: 15, 09:56,Call Received 09:56,Dispatch Notified 09:58,Dispatched 09:59,En Route 10:05,On Scene 10:08,At Patient 10:08,ALS Assessment,Response: UnchangedSucceeded, 10:12,Stretcher,Response: Unchanged 10:13,Oxygen FlowRate: 3 Device: Nasal Cannula (NC) Response: ImprovedSucceeded, 10:18,BP: 146/116 M,PULSE: 74,RR: 18 R,SPO2: 95 Ox,ETCO2: ,BG: ,PAIN: 0,GCS: 15, 10:25,BP: 148/104 M,PULSE: 73,RR: 18 R,SPO2: 95 Ox,ETCO2: ,BG: ,PAIN: 0,GCS: 15, 10:26,3-Lead ECG,Response: UnchangedSucceeded, 10:26,Saline Lock 10cc 18 ga Site: Antecubital-Left,Response: UnchangedSucceeded, 10:26,BP: / M,PULSE: 91,RR: R,SPO2: 98 Ox,ETCO2: ,BG: ,PAIN: ,GCS: , 10:29,Depart Scene 10:38,BP: 101/59 M,PULSE: 72,RR: 16 R,SPO2: 96 Ox,ETCO2: ,BG: ,PAIN: ,GCS: 15, 10:45,At Destination 11:10,Call Closed Disclaimer v1.1 Copyright 2020 [employer] This EMS Care Summary contains data elements from the applicable legal record (which may be displayed differently). It is designed to provide pertinent information for the following purposes: continuity of care, clinical quality, and state data reporting. The complete legal record is available to ED staff and administrators of the receiving hospital in [employer] Patient Tracker. All data is provided "as is."
[~2021-01-27 10:49] MED LIST changes: +MAGNESIUM400 MG PO; +PULMICORT0.5 MG/21 INH
[2021-01-27 10:50] VITALS: BP 107/55
[2021-01-27 11:46] LABS: ABSOLUTE NEUTROPHILS 9.5 thou/uL (1.4-8.2); BASOPHILS 0.2 % (0.0-2.0); HEMATOCRIT 26.6 % (37.0-47.0); HEMOGLOBIN 8.9 gm/dL (12.0-15.0); LYMPHOCYTES 6.6 % (24.0-44.0); MCH 31.3 pg (26.0-34.0); MCHC 33.3 g/dL (28.0-37.0); MCV 93.9 fL (80.0-100.0); MONOCYTES 4.4 % (1.0-8.0); PLATELET COUNT 275 thou/uL (150-400); POLYS 88.8 % (36.0-66.0); RBC 2.83 mil/uL (4.20-5.00); RDW 13.8 % (10.5-14.5); WBC 10.7 thou/uL (4.0-11.0)
[2021-01-27 12:04] LABS: CALCIUM 8.4 mg/dL (8.5-10.1); CREATININE 0.7 mg/dL (0.6-1.0); POTASSIUM 5.1 mmol/L (3.5-5.1)
[2021-01-27 12:09] LABS: ALBUMIN 2.6 g/dL (3.4-5.0); TOTAL BILIRUBIN 0.3 mg/dL (0.2-1.0); TOTAL PROTEIN 6.9 g/dL (6.4-8.2); TROPONIN-I 0.08 ng/mL (<0.06)
[2021-01-27 12:22] LABS: URINE BILIRUBIN NEGATIVE (Negative); URINE BLOOD TRACE (Negative); URINE CLARITY CLEAR; URINE COLOR YELLOW; URINE GLUCOSE-RANDOM* 1+ (Negative); URINE KETONES 1+ (Negative); URINE LEUKOCYTES-REFLEX NEGATIVE (Negative); URINE NITRITE-REFLEX NEGATIVE (Negative); URINE PROTEIN (DIPSTICK) TRACE (Negative); URINE UROBILINOGEN 0.2 E.U./dl (0.2-1.0)
--- NOTE | 2021-01-27 12:37 | NUR ---
PT GIVES PERMISSION TO UPDATE ELVIS, DAUGHTER. [phone]
[2021-01-27 13:09] VITALS: BP 121/52
--- NOTE | 2021-01-27 13:19 | EKG ---
[facility] [place] [address] ELECTROCARDIOGRAM REPORT Name: APOLINAR VEGA Room #: [facility].#: [id number] Admission: 01/27/21 Attend Phys: Discharge: Date of : 43 Report #: [id number] 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: : 1945 Requested By: Ricco Griffin Order Number: [id number] MD: Franky Painting Measurements Intervals [place] Rate: 75 P: 36 GA: 150 QRS: -16 QRSD: 107 T: 5 QT: 455 QTc: 509 Interpretive Statements Sinus rhythm Multiple ventricular premature complexes RSR' in V1 or V2, probably normal variant Probable left ventricular hypertrophy Prolonged QT interval Compared to ECG 03/18/2020 18:00:44 Ventricular premature complex(es) now present T-wave abnormality no longer present Electronically Signed On 01-27-2021 13:18:51 CDT by Franky Painting [email or web address] <ELECTRONICALLY SIGNED> By: Franky Painting MD, [facility] 01/27/21 1318 1109 1109 Franky Painting MD, [facility] /EPI
[2021-01-27 14:02] VITALS: BP 146/59
--- NOTE | 2021-01-27 15:28 | 2DMMODE ---
[facility] [place] [address] [place] [address] 2 D/M-MODE ECHOCARDIOGRAM Name: APOLINAR VEGA Room #: 219-P ADM IN M.R.#: [id number] Admission: 01/27/21 Attend Phys: Valentine Snow MD Discharge: Date of : 43 Report #: [id number] THIS REPORT FOR: cc: Criss Negron,Criss Julian,Michael Sandoval MD ~ APPROVED REPORT Study performed: 01/27/2021 14:21:55 EXAM: Comprehensive 2D, Doppler, and color-flow Echocardiogram Patient Location: ER Room #: 6 Status: stat BSA: 1.64 HR: 76 bpm BP: 138/97 mmHg Other Information Study Quality: Good Indications COPD Diabetes Dyspnea Elevated Troponin Hypertension/HDD 2D Dimensions RVDd: 35.92 mm IVSd: 8.76 (7-11mm) LVOT Diam: 20.24 (18-24mm) LVDd: 52.12 mm PWd: 7.99 (7-11mm) Ascending Ao: 29.92 (22-36mm) LVDs: 41.98 (25-40mm) Left Atrium: 39.18 (27-40mm) Aortic Root: 25.12 mm IVC: 25.00 mm Volumes Left Atrial Volume (Systole) Single Plane 4CH: 85.43 mL Single Plane 2CH: 59.62 mL LA ESV Index: 47.00 mL/m2 Aortic Valve AoV Peak Rashid.: 2.67 m/s [facility] [address] [place] [address] 2 D/M-MODE ECHOCARDIOGRAM Name: APOLINAR VEGA Room #: 219-P ADM IN M.R.#: [id number] Admission: 01/27/21 Attend Phys: Cookie Evans Discharge: Date of : 43 Report #: [id number] AO Peak Gr.: 28.59 mmHg LVOT Max P.91 mmHg AO Mean Gr.: 17.91 mmHg LVOT Mean P.19 mmHg AO V2 Mean: 2.02 m/s LVOT Max V: 0.85 m/s AO V2 VTI: 71.36 cm LVOT Mean V: 0.46 m/s ENDY (VTI): 0.87 cm2 LVOT V1 VTI: 19.41 cm ENDY Vmax: 1.02 cm2 SV (LVOT): 62.40 mL Pulmonary Valve PV Peak Rashid.: 0.88 m/s PV Peak Gr.: 3.12 mmHg Tricuspid Valve TR Peak Rashid.: 3.14 m/s TR Peak Gr.: 39.33 mmHg PA Pressure: 49.00 mmHg Left Ventricle The left ventricle is normal size. There is normal left ventricular wall thickness. Left ventricular systolic function is mild to moderately decreased. LVEF is 40%. Moderate diastolic dysfunction is present (pseudonormal filling). Right Ventricle The right ventricle is normal size. The right ventricular systolic function is normal. Atria Left atrium is dilated. Right atrium is dilated. Aortic Valve The aortic valve is normal in structure. Aortic valve is calcified. No aortic regurgitation is present. Moderate aortic stenosis. Mitral Valve Mitral valve leaflets are thickened. Moderate mitral annular calcification. Mild mitral regurgitation. No evidence of mitral valve stenosis. Tricuspid Valve The tricuspid valve is normal in structure. There is mild tricuspid regurgitation. The right atrial pressure is estimated at 43 mmHg. There is moderate pulmonary hypertension. Pulmonic Valve The pulmonary valve is normal in structure. There is no pulmonic valvular regurgitation. [facility] [address] [place] [address] 2 D/M-MODE ECHOCARDIOGRAM Name: APOLINAR VEGA Room #: 219-P ADM IN M.R.#: [id number] Admission: 01/27/21 Attend Phys: Cookie Evans Discharge: Date of : 43 Report #: [id number] Great Vessels The aortic root is normal in size. IVC is dilated and collapses <50% with inspiration. Pericardium There is no pericardial effusion. <Conclusion> The left ventricle is normal size. There is normal left ventricular wall thickness. Left ventricular systolic function is mild to moderately decreased. Moderate diastolic dysfunction is present (pseudonormal filling). The right ventricle is normal size. Left atrium is dilated. Moderate aortic stenosis. Moderate mitral annular calcification. Mild mitral regurgitation. There is mild tricuspid regurgitation. The right atrial pressure is estimated at 43 mmHg. <ELECTRONICALLY SIGNED> By: Michael Crisostomo MD 01/27/21 1528 1528 1528 Michael Crisostomo MD /INF
--- NOTE | 2021-01-27 19:55 | NUR ---
PATIENT ADMITTED FROM ED. PATIENT IS FROM "[facility]" FACILITY. PATIENT IS SHORT OF BREATH AND O2 IS IN LOW 80'S. PATIENT'S O2 TURNED UP TO 3L NC, O2 SAT 90S. OTHERWISE, VSS. PATIENT IS A/O X1-[address] COLON UPDATED VIA TELEPHONE ABOUT PATIENT'S STATUS, NEW ORDERS RECIEVED AND IMPLEMENTED. PATIENT'S DAUGHTER ELVIS UPDATED AT BEDSIDE.
[2021-01-27 21:15] VITALS: BP 157/47
[2021-01-28] VITALS: BP 180/72
[2021-01-28 01:18] LABS: HEMATOCRIT 28.3 % (37.0-47.0); HEMOGLOBIN 9.3 gm/dL (12.0-15.0); MCH 30.7 pg (26.0-34.0); MCV 93.2 fL (80.0-100.0); RBC 3.04 mil/uL (4.20-5.00); RDW 13.8 % (10.5-14.5); WBC 10.7 thou/uL (4.0-11.0)
[2021-01-28 01:39] LABS: CALCIUM 8.5 mg/dL (8.5-10.1); CREATININE 0.8 mg/dL (0.6-1.0); TROPONIN-I 0.1 ng/mL (<0.06)
[2021-01-28 06:09] VITALS: BP 182/72
[2021-01-28 07:10] VITALS: BP 169/73
[2021-01-28 11:10] VITALS: BP 173/73
[2021-01-28 13:48] LABS: PROT/CREAT RATIO 0.8; URINE CREATININE-RANDOM* 48.4 mg/dL; URINE PROTEIN-RANDOM* 37.7 mg/dL (<11.9)
[2021-01-28 15:30] VITALS: BP 169/72
[2021-01-28 20:04] VITALS: BP 141/89
[2021-01-29 03:20] LABS: ALBUMIN 2.8 g/dL (3.4-5.0); CREATININE 0.7 mg/dL (0.6-1.0); PHOSPHORUS 3.1 mg/dL (2.6-4.7); POTASSIUM 4.1 mmol/L (3.5-5.1)
[2021-01-29 03:44] VITALS: BP 153/44
[2021-01-29 04:30] VITALS: BP 153/44
--- NOTE | 2021-01-29 04:43 | NUR ---
PROGRESS PT A/O X4, LUNGS DIMINISHED AND COARSE. PT HAS CONSTANT COUGH AND IS SPITTING UP THIN CLEAR SPUTUM, BLOWING NOSE FREQUENTLY. REPORTS THAT SHE IS EXHAUSTED FROM COUGHING AND HADN'T SLEPT IN DAYS. TESSALON PERLES ORDERED AND GIVEN WITH EFFECT PT SLEPT FOR 2 STRAIGHT HOURS.WEARING 1 LITER O2 VIA NC SATS IN NID 90'S, SATS ON ROOM AIR REMAINED AT 92. VOIDING LARGE AMOUNTS OF CLEAR YELLOW URINE. BS POSITIVE PT REPORTS BM 01/28. TELE INTACT READING SR WITH RATES IN THE 70'S. SKIN WARM DRY INTACT NO AREAS OF BREAKDOWN. IV ANTIBIOTICS ADMINISTERED ORDERED VANCO TROUGH WAS LOW SO DOSE INCREASED TO 1000 MG. CONTINUE POC.
[2021-01-29 07:10] VITALS: BP 175/70
[2021-01-29 11:30] VITALS: BP 148/62
[2021-01-29 15:15] VITALS: BP 155/61
[2021-01-29 19:06] VITALS: BP 148/56
--- NOTE | 2021-01-29 19:23 | NUR ---
PT ALERT AND ORIENTED TIMES FOUR. VSS, SR ON TELE. PT DENIES PAIN/SOA. PT TOLERATES MEDS AND MEALS. PT UP TO CHAIR FOR MOST OF THE SHIFT. PT DAUGHTER AT BEDSIDE THIS EVENING. PT PROGRESSING TOWRADS POC GOALS.
[2021-01-30 03:49] VITALS: BP 161/56
--- NOTE | 2021-01-30 03:52 | NUR ---
PT HAS BEEN SLEEPING MOST OF THE NIGHT. RESPIRATIONS EVEN AND UNLABORED. COUGHING IMPROVED WITH COUGH MEDICINE GIVEN AT BEDTIME. UP W/ SBA TO BSC TO VOID. FALL PRECAUTIONS IN PLACE. PROGRESSING TOWARD POC GOALS. WILL CONTINUE TO MONITOR FURTHER.
[2021-01-30 08:52] VITALS: BP 176/81
[2021-01-30 10:06] LABS: URINE OSMOLALITY* 447 (())
[2021-01-30 10:57] LABS: UREA NITROGEN-RANDM URINE 620 mg/dL (Not Estab.)
[2021-01-30 12:27] VITALS: BP 150/48
[2021-01-30] MEDS ORDERED: MUCUS RLF DM E1 EACH PO (12:58)
[2021-01-30] MEDS ORDERED: PREDNISONE 20 M20 M1 PO (12:58)
[2021-01-30] MEDS ORDERED: CEFDINIR300 MG PO (12:58)
[2021-01-30] MEDS ORDERED: LASIX 40 MG TAB40 M1 PO (12:58)
[2021-01-30] MEDS ORDERED: BENZONATATE100 MG PO (12:58)
[2021-01-30] MEDS ORDERED: HYDROCODONE-CH115 ML PO (12:58)
[2021-01-30] MEDS ORDERED: LANTUS SUBQ (12:58)
[2021-01-30] MEDS ORDERED: CEPACOL SORE T1 EAC7 PO (12:58)
[2021-01-30] MEDS ORDERED: FLONASE 0.05%50 MCG NASAL (12:58)
[2021-01-30] MEDS ORDERED: COZAAR 25 MG TA25 MG PO (12:59)
--- NOTE | 2021-01-30 14:35 | NUR ---
PATIENT ALERT/ORIENTED. FORGETFUL AT TIMES. PATIENT STATES SHE FEELS GOOD ASIDE FROM DRY COUGH BUT IS ANXIOUS TO GO HOME. SEEN BY DR. COLON. STABLE FOR DISCHARGE. HAD TWO CONVERSATIONS WITH DAUGHTER IN REGARDS TO PATIENT STATUS AND DISCHARGE. REQUESTED DR. COLON SPEAK WITH DAUGHTER. CASE MANAGEMENT ARRANGING TRANSPORT AND FACILITATING DISCHARGE BACK TO FACILITY. PLAN FOR DISCHARGE BETWEEN [phone].
--- NOTE | 2021-01-30 16:40 | NUR ---
REPORT CALLED TO FACILITY. IV DISCONTINUED. TELE MONITOR DISCONTINUED. UPDATED DAUGHTER ELVIS ON DISCHARGE AT LENGTH.
--- NOTE | 2021-01-30 16:57 | NUR ---
Patient admits from [facility] third floor. She is to dc today. Faxed orders, chart copied. Sp with Cindy at [facility]. Sp with dtr who is at work and requests assistance with transport as she cannot leave work. [facility] arranged for 1600. Notified RN, phys, dtr and [facility] of transport and time. Patient agreeable with dc and pleased to be returning to [facility].
== END 2021-01-30 16:45 | DRG 291 ==
LOC: ER 10:49 → EROBS 13:56 → 2N 13:56
PROVIDERS: Internal Medicine Nephrology; Nurse Practitioner; ADMIT Hospitalist; ATTEND Hospitalist
DX: I11.0 Hypertensive heart disease with heart failure (principal); I50.21 Acute systolic (congestive) heart failure; J18.9 Pneumonia, unspecified organism; J96.01 Acute respiratory failure with hypoxia; J96.02 Acute respiratory failure with hypercapnia; E87.1 Hypo-osmolality and hyponatremia; J44.0 Chronic obstructive pulmonary disease with (acute) lower respiratory infection; E87.3 Alkalosis; I42.8 Other cardiomyopathies; I50.23 Acute on chronic systolic (congestive) heart failure; R77.8 Other specified abnormalities of plasma proteins; Z20.822 Contact with and (suspected) exposure to COVID-19; M19.90 Unspecified osteoarthritis, unspecified site; E78.5 Hyperlipidemia, unspecified; K21.9 Gastro-esophageal reflux disease without esophagitis; F31.9 Bipolar disorder, unspecified; G47.33 Obstructive sleep apnea (adult) (pediatric); E11.9 Type 2 diabetes mellitus without complications; J20.9 Acute bronchitis, unspecified; G20 Parkinson's disease; I25.10 Atherosclerotic heart disease of native coronary artery without angina pectoris; Z66 Do not resuscitate; I08.3 Combined rheumatic disorders of mitral, aortic and tricuspid valves; G71.00 Muscular dystrophy, unspecified; D64.9 Anemia, unspecified; E87.8 Other disorders of electrolyte and fluid balance, not elsewhere classified; Z79.51 Long term (current) use of inhaled steroids; Z90.710 Acquired absence of both cervix and uterus; Z91.048 Other nonmedicinal substance allergy status; Z88.0 Allergy status to penicillin; Z88.6 Allergy status to analgesic agent; Z91.013 Allergy to seafood; Z88.2 Allergy status to sulfonamides; Z88.8 Allergy status to other drugs, medicaments and biological substances; I25.2 Old myocardial infarction; Z85.3 Personal history of malignant neoplasm of breast
CPT/HCPCS: 10081

== ENCOUNTER → 2021-02-07 | Outpatient (CLI) | payer OTHER ==
[~2021-02-07] MED LIST changes: +BENZONATATE100 MG PO; +CEFDINIR300 MG PO; +CEPACOL SORE T1 EAC7 PO; +FLONASE 0.05%50 MCG NASAL; +HYDROCODONE-CH115 ML PO; +MUCUS RLF DM E1 EACH PO; +PREDNISONE 20 M20 M1 PO
== END ==
LOC: BC 08:36
PROVIDERS: ATTEND Internal Medicine
DX: Z12.31 Encounter for screening mammogram for malignant neoplasm of breast (principal); Z85.3 Personal history of malignant neoplasm of breast

== ENCOUNTER → 2021-02-24 | Outpatient (CLI) | payer OTHER | LOC: SJCVC 10:40 | PROVIDERS: ATTEND Internal Medicine Cardiovascular Disease | DX: R94.31 Abnormal electrocardiogram [ECG] [EKG] (principal); I45.10 Unspecified right bundle-branch block; I49.1 Atrial premature depolarization; I42.8 Other cardiomyopathies; I35.0 Nonrheumatic aortic (valve) stenosis; I25.10 Atherosclerotic heart disease of native coronary artery without angina pectoris; E78.00 Pure hypercholesterolemia, unspecified; J44.9 Chronic obstructive pulmonary disease, unspecified; E87.1 Hypo-osmolality and hyponatremia; E78.5 Hyperlipidemia, unspecified; E11.9 Type 2 diabetes mellitus without complications; J96.90 Respiratory failure, unspecified, unspecified whether with hypoxia or hypercapnia; G20 Parkinson's disease; Z88.0 Allergy status to penicillin; Z88.5 Allergy status to narcotic agent; Z88.2 Allergy status to sulfonamides; Z79.82 Long term (current) use of aspirin; Z79.899 Other long term (current) drug therapy ==

== ENCOUNTER 2021-03-13 02:03 | Emergency (ER) | payer OTHER ==
[~2021-03-13] VITALS: Ht 157.5 cm; Wt 67.6 kg
--- NOTE | ~2021-03-13 | EMS ---
[facility] [address] [place] [address] EMS Patient Care Report Name: APOLINAR VEGA Room #: DEP DEEPIKA Mckeon#: [id number] Admission: 03/13/21 Attend Phys: Discharge: 03/13/21 Date of : 43 Report #: [id number] THIS REPORT FOR: //name// Report Transmitted: 03/14/2021 15:11 EMS Care Summary [place], [place]/[facility] Incident [id number] @ 03/13/2021 01:22 Incident Location [address] Patient APOLINAR VEGA Female, 76 Years 1945 Patient Address [address] [place] [id number] Patient History Asthma,Hypertension (HTN),Bipolar II Disorder,Type 2 Diabetes,Respiratory Failure, Patient Allergies Codeine,Penicillin allergy,Sulfa, Patient Medications Protonix, Gabapentin, Albuterol, Depakote, Carvedilol, Aspirin, Novolog, Hydrocodone, Chief Complaint RESPIRATORY DISTRESS Disposition Transported No Lights/[place] Dispatch Reason Breathing Problem Transported To [facility] [place] N[place]ative PT FOUND SITTING IN BED IN HER ROOM AT [facility]. STAFF ON SCENE STATES THAT PT HAS [facility] [address] [place] [address] EMS Patient Care Report Name: APOLINAR VEGA Room #: DEP ER NikEyal#: [id number] Admission: 03/13/21 Attend Phys: Discharge: 03/13/21 Date of : 43 Report #: [id number] BEEN C/O WORSENING TROUBLE BREATHING FOR APPROX 3 HOURS. Initial Vitals @01:39P: 68,R: 16,BP: 141/82,Pain: 0/10,GCS: 15,SpO2: 89,Revised Trauma: 12, Assessments @01:33MENTAL:No Abnormalities,SKIN:No Abnormalities,HEENT:Head/Face: No Abnormalities,LUNG SOUNDS:General: No Abnormalities,ABDOMEN:General: No Abnormalities,PELVIS//GI:No Abnormalities,EXTREMITIES:PULSE:NEURO:No Abnormalities, Impression Acute Respiratory Distress (Dyspnea) Procedures @01:33ALS AssessmentResponse: UnchangedSucceeded@01:41Oxygen FlowRate: 15 Device: Non Re-breather Mask (NRB) Response: ImprovedSucceeded@01:43Saline Lock 0cc (20 ga) Site: Forearm-RightResponse: UnchangedSucceeded@PTAOxygen FlowRate: 3 Device: Nasal Cannula (NC) Response: UnchangedSucceeded Timeline [employer],Oxygen FlowRate: 3 Device: Nasal Cannula (NC) Response: UnchangedSucceeded, 01:21,Call Received :,Dispatch Notified :,Dispatched 01:24,En Route 01:29,On Scene 01:33,At Patient 01:33,ALS Assessment,Response: UnchangedSucceeded, 01:39,BP: 141/82 M,PULSE: 68,RR: 16 R,SPO2: 89 Ox,ETCO2: ,BG: ,PAIN: 0,GCS: 15, 01:41,Oxygen FlowRate: 15 Device: Non Re-breather Mask (NRB) Response: ImprovedSucceeded, 01:43,Saline Lock 0cc 20 ga Site: Forearm-Right,Response: UnchangedSucceeded, 01:45,Depart Scene 01:57,At Destination 02:05,Call Closed Disclaimer v1.1 Copyright 2020 [employer] This EMS Care Summary contains data elements from the applicable legal record (which may be displayed differently). It is designed to provide pertinent information for the following purposes: continuity of care, clinical quality, and state data reporting. The complete legal record is available to ED staff and administrators of the receiving hospital in [employer]'s Patient Tracker. All data is provided "as is."
[2021-03-13 02:16] LABS: ABSOLUTE NEUTROPHILS 9.7 thou/uL (1.4-8.2); BASOPHILS 1.1 % (0.0-2.0); EOSINOPHILS 0.5 % (0.0-3.0); HEMOGLOBIN 9.3 gm/dL (12.0-15.0); LYMPHOCYTES 9.7 % (24.0-44.0); MCH 31.4 pg (26.0-34.0); MCHC 33.3 g/dL (28.0-37.0); MCV 94.1 fL (80.0-100.0); MONOCYTES 7.5 % (1.0-8.0); PLATELET COUNT 329 thou/uL (150-400); POLYS 81.2 % (36.0-66.0); RBC 2.97 mil/uL (4.20-5.00); RDW 14.4 % (10.5-14.5); WBC 11.9 thou/uL (4.0-11.0)
[2021-03-13] MEDS ORDERED: LEVEMIR FL100 UNIT/2 SUBQ (02:19)
[2021-03-13] MEDS ORDERED: VOLTAREN ARTHRI20 GM TOP (02:20)
[2021-03-13] MEDS ORDERED: NEURONTIN300 MG PO (02:21)
[2021-03-13] MEDS ORDERED: VITAMIN D375 MCG PO (02:21)
[2021-03-13] MEDS ORDERED: HYDROCODONE-CH115 ML PO (02:22)
[2021-03-13] MEDS ORDERED: ALLEGRA ALLERG180 MG PO (02:22)
[2021-03-13] MEDS ORDERED: IRON325 M1 PO (02:22)
[2021-03-13] MEDS ORDERED: TUMS200 MG PO (02:23)
[2021-03-13] MEDS ORDERED: PROMETHAZINE-D473 M1 PO (02:23)
[2021-03-13] MEDS ORDERED: ONDANSETRON HCL4 M3 PO (02:23)
[2021-03-13] MEDS ORDERED: BISACODYL10 MG RECTAL (02:24)
[2021-03-13] MEDS ORDERED: VENTOLIN HFA 1818 GM INH (02:24)
[2021-03-13] MEDS ORDERED: LOPERAMIDE 2 MG2 M1 PO (02:24)
[2021-03-13] MEDS ORDERED: DIABETIC TUSSI118 ML PO (02:25)
[2021-03-13 02:33] LABS: ANION GAP < 0 mmol/L (7-16); BUN 14 mg/dL (7-18); CALCIUM 9.1 mg/dL (8.5-10.1); CHLORIDE 95 mmol/L (98-107); CO2 37 mmol/L (21-32); CREATININE 0.8 mg/dL (0.6-1.0); GLUCOSE 176 mg/dL (74-106); POTASSIUM 4.8 mmol/L (3.5-5.1); SODIUM 131 mmol/L (136-145)
[2021-03-13 02:34] LABS: TROPONIN-I <0.06 ng/mL (<0.06)
[2021-03-13 04:14] LABS: URINE BILIRUBIN NEGATIVE (Negative); URINE BLOOD NEGATIVE (Negative); URINE CLARITY CLEAR; URINE COLOR YELLOW; URINE GLUCOSE-RANDOM* NEGATIVE (Negative); URINE KETONES NEGATIVE (Negative); URINE LEUKOCYTES-REFLEX NEGATIVE (Negative); URINE NITRITE-REFLEX NEGATIVE (Negative); URINE PROTEIN (DIPSTICK) NEGATIVE (Negative); URINE UROBILINOGEN 0.2 E.U./dl (0.2-1.0)
[2021-03-13] MEDS ORDERED: DOXYCYCLINE 10100 MG PO (05:00)
[2021-03-13] MEDS ORDERED: PREDNISONE 10 M10 MG PO (05:00)
[2021-03-13 05:02] VITALS: BP 172/79
--- NOTE | 2021-03-13 07:31 | EKG ---
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: : 1945 Requested By: Alber Serrano Order Number: [id number] MD: Franky Painting Measurements Intervals [place] Rate: 87 P: 58 MS: 149 QRS: -7 QRSD: 105 T: 5 QT: 410 QTc: 494 Interpretive Statements Sinus rhythm Ventricular trigeminy RSR' in V1 or V2, right VCD or RVH Probable left ventricular hypertrophy Borderline prolonged QT interval Compared to ECG 01/27/2021 11:09:03 Right ventricular hypertrophy now present Electronically Signed On 03-13-2021 7:30:57 CDT by Franky Painting [email or web address] <ELECTRONICALLY SIGNED> By: Franky Painting MD, [facility] 03/13/21 0730 0237 6 Franky Painting MD, [facility] /EPI
== END 2021-03-13 05:02 | disposition home or self-care (01) ==
LOC: ER 02:03
PROVIDERS: Student in an Organized Health Care Education/Training Program
DX: J44.1 Chronic obstructive pulmonary disease with (acute) exacerbation (principal); I10 Essential (primary) hypertension; E78.5 Hyperlipidemia, unspecified; K21.9 Gastro-esophageal reflux disease without esophagitis; F31.9 Bipolar disorder, unspecified; E11.9 Type 2 diabetes mellitus without complications; Z90.711 Acquired absence of uterus with remaining cervical stump; Z90.12 Acquired absence of left breast and nipple; Z79.82 Long term (current) use of aspirin; Z79.891 Long term (current) use of opiate analgesic; Z79.51 Long term (current) use of inhaled steroids; Z88.6 Allergy status to analgesic agent; Z88.5 Allergy status to narcotic agent; Z88.0 Allergy status to penicillin; Z91.013 Allergy to seafood; Z88.2 Allergy status to sulfonamides; Z91.048 Other nonmedicinal substance allergy status; Z20.822 Contact with and (suspected) exposure to COVID-19

== ENCOUNTER 2021-03-20 16:40 | Emergency (ER) | payer OTHER ==
[~2021-03-20] VITALS: Ht 157.5 cm; Wt 67.6 kg
--- NOTE | ~2021-03-20 | EMS ---
[facility] [address] [place] [address] EMS Patient Care Report Name: APOLINAR VEGA Room #: DEP DEEPIKA Mckeon#: [id number] Admission: 03/20/21 Attend Phys: Discharge: 03/20/21 Date of : 43 Report #: [id number] THIS REPORT FOR: //name// Report Transmitted: 03/21/2021 07:44 EMS Care Summary [place], [place]/[facility] Incident [id number] @ 03/20/2021 15:52 Incident Location [address] Patient APOLINAR VEGA Female, 76 Years 1945 Patient Address [address] [place] [phone] Patient History Asthma,Cancer, Unspecified,Chronic Obstructive Pulmonary Disease (COPD),Hypertension (HTN),Parkinson's Disease,Hyperlipidemia,Gastro-Esophageal Reflux Disease (GERD),Bronchitis Chronic,Bipolar II Disorder,Type 2 Diabetes,Cardiomyopathy, Patient Allergies Codeine,Penicillin allergy,Sulfa, Patient Medications Carvedilol, Protonix, Calcium, Ondansetron, Losartan, Gabapentin, Simvastatin, Iron, Hydrocodone, Chief Complaint HYPOGLYCEMIC Disposition Transported No Lights/[place] Dispatch Reason Diabetic Problem Transported To [facility] [address] [place] [address] EMS Patient Care Report Name: APOLINAR VEGA Room #: DEP DEEPIKA Mckeon#: [id number] Admission: 03/20/21 Attend Phys: Discharge: 03/20/21 Date of : 43 Report #: [id number] Narrative pt was found by group home staff unresponsive. Pt bgl in the 40s. Pt given 1 amp of glucagon. Pt bgl went into the 60s. Upon P41 arrival, pt bgl is 50. Pt given 100 ml of D10. Pt bgl 185. Pt is alert to place and self. NH staff states that she was given full dose of insulin. Pt did not eat lucnch this afternoon. Pt transported to [facility]. no changes en route. Pt care transferred to [place] ED nursing staff. Initial Vitals @PTAGlucose: 50, @16:22P: 60,R: 18,BP: 123/70,Pain: 0/10,GCS: 14,Glucose: 185,CO: 0,SpO2: 97,Revised Trauma: 12, @16:34P: 59,R: 18,BP: 110/46,GCS: 15,SpO2: 98,Revised Trauma: 12, Assessments @16:33MENTAL:Person Oriented,Place Oriented,SKIN:HEENT:Head/Face: No Abnormalities,Neck/Airway: No Abnormalities,LUNG SOUNDS:General: No Abnormalities,Left Upper: No Abnormalities,Right Upper: No Abnormalities,Left Lower: No Abnormalities,Right Lower: No Abnormalities,ABDOMEN:General: No Abnormalities,Left Upper: No Abnormalities,Right Upper: No Abnormalities,Left Lower: No Abnormalities,Right Lower: No Abnormalities,PELVIS//GI:No Abnormalities,EXTREMITIES:Left Arm: No Abnormalities,Right Arm: No Abnormalities,Left Leg: No Abnormalities,Right Leg: No Abnormalities,PULSE:NEURO:No Abnormalities, Impression Diabetic Hypoglycemia Procedures @16:04ALS AssessmentResponse: Unchanged@PTASaline Lock cc (20 ga) Site: Antecubital-Right@PTADextrose 10% - 100 Milliliters (ml) - Intravenous (IV)Response: Improved Timeline ROVING MARKER,Saline Lock cc 20 ga Site: Antecubital-Right, ROVING MARKER,Dextrose 10% - 100 Milliliters (ml) - Intravenous (IV),Response: Improved ROVING MARKER,BP: / M,PULSE: ,RR: R,SPO2: Ox,ETCO2: ,B,PAIN: ,GCS: , 15:50,Call Received 15:50,Dispatch Notified 15:52,Dispatched 15:54,En Route 16:02,On Scene 16:04,At Patient 16:04,ALS Assessment,Response: Unchanged 16:21,Depart Scene 16:22,BP: 123/70 M,PULSE: 60,RR: 18 R,SPO2: 97 Ox,ETCO2: ,B,PAIN: 0,GCS: [address] [address] EMS Patient Care Report Name: APOLINAR VEGA Room #: SHELBY Mckeon#: [id number] Admission: 03/20/21 Attend Phys: Discharge: 03/20/21 Date of : 43 Report #: [id number] 14, 16:34,BP: 110/46 M,PULSE: 59,RR: 18 R,SPO2: 98 Ox,ETCO2: ,BG: ,PAIN: ,GCS: 15, 16:47,At Destination 17:02,Call Closed Disclaimer v1.1 Copyright 2020 [employer] This EMS Care Summary contains data elements from the applicable legal record (which may be displayed differently). It is designed to provide pertinent information for the following purposes: continuity of care, clinical quality, and state data reporting. The complete legal record is available to ED staff and administrators of the receiving hospital in [employer]'s Patient Tracker. All data is provided "as is."
[~2021-03-20 16:40] MED LIST changes: +ALLEGRA ALLERG180 MG PO; +BISACODYL10 MG RECTAL; +DIABETIC TUSSI118 ML PO; +DOXYCYCLINE 10100 MG PO; +IRON325 M1 PO; +LEVEMIR FL100 UNIT/2 SUBQ; +ONDANSETRON HCL4 M3 PO; +PREDNISONE 10 M10 MG PO; +PROMETHAZINE-D473 M1 PO; +TUMS200 MG PO; +VITAMIN D375 MCG PO; +VOLTAREN ARTHRI20 GM TOP
[2021-03-20 18:03] LABS: ABSOLUTE NEUTROPHILS 10.7 thou/uL (1.4-8.2); BASOPHILS 0.4 % (0.0-2.0); EOSINOPHILS 0.2 % (0.0-3.0); HEMATOCRIT 24.9 % (37.0-47.0); HEMOGLOBIN 8.3 gm/dL (12.0-15.0); LYMPHOCYTES 5.3 % (24.0-44.0); MCH 31.4 pg (26.0-34.0); MCHC 33.4 g/dL (28.0-37.0); MONOCYTES 5.5 % (1.0-8.0); PLATELET COUNT 272 thou/uL (150-400); POLYS 88.6 % (36.0-66.0); RBC 2.65 mil/uL (4.20-5.00); RDW 15.6 % (10.5-14.5); WBC 12.1 thou/uL (4.0-11.0)
[2021-03-20 18:11] LABS: ANION GAP 0 mmol/L (7-16); BUN 15 mg/dL (7-18); CALCIUM 8.3 mg/dL (8.5-10.1); CHLORIDE 88 mmol/L (98-107); CO2 39 mmol/L (21-32); GLUCOSE 139 mg/dL (74-106); POTASSIUM 4.9 mmol/L (3.5-5.1); SODIUM 127 mmol/L (136-145)
[2021-03-20 18:20] LABS: ALBUMIN 2.6 g/dL (3.4-5.0); SGOT 28 U/L (15-37); SGPT 33 U/L (14-59); TOTAL BILIRUBIN 0.4 mg/dL (0.2-1.0); TOTAL PROTEIN 6.5 g/dL (6.4-8.2); TROPONIN-I <0.06 ng/mL (<0.06)
[2021-03-20 21:06] VITALS: BP 145/54
== END 2021-03-20 21:08 | disposition home or self-care (01) ==
LOC: ER 16:40
PROVIDERS: Emergency Medicine
DX: E11.649 Type 2 diabetes mellitus with hypoglycemia without coma (principal); Z20.822 Contact with and (suspected) exposure to COVID-19; I11.0 Hypertensive heart disease with heart failure; I50.9 Heart failure, unspecified; J18.9 Pneumonia, unspecified organism; K21.9 Gastro-esophageal reflux disease without esophagitis; F31.9 Bipolar disorder, unspecified; J44.9 Chronic obstructive pulmonary disease, unspecified; Z90.710 Acquired absence of both cervix and uterus; Z90.12 Acquired absence of left breast and nipple; Z79.82 Long term (current) use of aspirin; Z79.891 Long term (current) use of opiate analgesic; Z79.51 Long term (current) use of inhaled steroids; Z79.4 Long term (current) use of insulin; Z79.1 Long term (current) use of non-steroidal anti-inflammatories (NSAID); Z79.899 Other long term (current) drug therapy; Z88.6 Allergy status to analgesic agent; Z88.5 Allergy status to narcotic agent; Z88.0 Allergy status to penicillin; Z88.2 Allergy status to sulfonamides; Z88.8 Allergy status to other drugs, medicaments and biological substances

== ENCOUNTER 2021-04-27 16:52 | Inpatient (IN) | payer OTHER ==
[~2021-04-27] VITALS: Ht 157.5 cm; Wt 76.2 kg
--- NOTE | ~2021-04-27 | EMS ---
[address] [address] EMS Patient Care Report Name: APOLINAR VEGA Room #: 458-P ADM IN M.R.#: [id number] Admission: 04/27/21 Attend Phys: Braulio William MD Discharge: Date of : 43 Report #: [id number] THIS REPORT FOR: //name// Report Transmitted: 05/01/2021 11:15 EMS Care Summary [facility] [place] Incident [id number] @ 04/27/2021 16:01 Incident Location [address] [place] [id number] Patient apolinar vega Female, 76 Years 1945 Patient Address [facility] [address] [place] [phone] Patient History Acute respiratory failure,Bipolar disorder, unspecified,Hypertension (HTN),Hyperlipidemia,Cardiac Condition - Other,Type 2 diabetes mellitus, Patient Allergies , Patient Medications Albuterol, , Aspirin, Carvedilol, , Furosemide, Gabapentin, , Losartan, Novolin N, Ondansetron, Simvastatin, Chief Complaint None Disposition Transported No Lights/[place] Dispatch Reason Breathing Problem Transported To [facility] Narrative dispatched to the above address for a soa. at our arrival to the scene, we came to find this 76 y/o f in no acute apparent distress. pt was being wheeled out [address] [address] EMS Patient Care Report Name: APOLINAR VEGA Room #: 458-P ADM IN ..#: [id number] Admission: 04/27/21 Attend Phys: Braulio William MD Discharge: Date of : 43 Report #: [id number] in her wheel chair by [facility] p40 crew. report from [facility] stated that pt had a chest xray that showed pneumonia. they also stated that the facility wanted her sent out. when asked her mental status the crew from [facility] stated the nurses stated their that she was altered. when asked more they stated they don't know because they are bakery manager not paramedics. they cant make that call. pt was confused on one a. a/o questions. but awencered the rest correctly. pt was assisted into the awaiting cot, and was secured. the cot was moved to the ambulance, and secured. pt v/s were taken, with spo2 placed. a non emergency transport was started to [facility], with report called in. assessment see flow chart rx see flow chart transport pt had no changes during transport pt was monitored for any changes. pt orders were checked and their was an antibodies started, and orders for a report chest x ray in a week. pt remained stable for transport. destenaiton pt arrived stable to [facility]. where staff stated we will be going to ed bed 9. pt was wheeled on the cot to ed bed 9. where she was lifted over to the ed bed. where nurses staff took over care, with a full report given. Initial Vitals @16:24SpO2: 100, @16:26SpO2: 98, @16:28SpO2: 93, @16:29SpO2: 98, @16:34SpO2: 100, @16:39SpO2: 100, @16:28P: 70,R: 18,BP: 181/72, @16:45P: 74,R: 18,BP: 170/75, @16:28GCS: 14, @16:45GCS: 14, Assessments @16:19MENTAL:SKIN:HEENT:LUNG SOUNDS:ABDOMEN:PELVIS//GI:EXTREMITIES:PULSE:NEURO: Impression Respiratory disorder Procedures @PTAOxygen Complications: ,Response: Unchanged@16:40Trauma Alert Timeline RN PRIOR AUTHORIZATION,Oxygen Complications: ,,Response: Unchanged 16:00,Call Received 16:00,Dispatch Notified 16:00,Psap Call 16:01,Dispatched 16:01,En Route [facility] [address] [place] [address] EMS Patient Care Report Name: APOLINAR VEGA Room #: 458-P ADM IN .R.#: [id number] Admission: 04/27/21 Attend Phys: Braulio William MD Discharge: Date of : 43 Report #: [id number] 16:18,On Scene 16:19,At Patient 16:24,BP: / M,PULSE: ,RR: R,SPO2: 100 Ox,ETCO2: ,BG: ,PAIN: ,GCS: , 16:26,BP: / M,PULSE: ,RR: R,SPO2: 98 Ox,ETCO2: ,BG: ,PAIN: ,GCS: , 16:28,BP: / M,PULSE: ,RR: R,SPO2: 93 Ox,ETCO2: ,BG: ,PAIN: ,GCS: , 16:28,BP: 181/72 M,PULSE: 70,RR: 18 R,SPO2: Ox,ETCO2: ,BG: ,PAIN: ,GCS: , 16:28,BP: / M,PULSE: ,RR: R,SPO2: Ox,ETCO2: ,BG: ,PAIN: ,GCS: 14, 16:29,BP: / M,PULSE: ,RR: R,SPO2: 98 Ox,ETCO2: ,BG: ,PAIN: ,GCS: , 16:30,Depart Scene 16:34,BP: / M,PULSE: ,RR: R,SPO2: 100 Ox,ETCO2: ,BG: ,PAIN: ,GCS: , 16:39,BP: / M,PULSE: ,RR: R,SPO2: 100 Ox,ETCO2: ,BG: ,PAIN: ,GCS: , 16:40,Trauma Alert, 16:45,BP: 170/75 M,PULSE: 74,RR: 18 R,SPO2: Ox,ETCO2: ,BG: ,PAIN: ,GCS: , 16:45,BP: / M,PULSE: ,RR: R,SPO2: Ox,ETCO2: ,BG: ,PAIN: ,GCS: 14, 16:45,At Destination 16:45,Call Closed Disclaimer v1.1 Copyright 2020 [employer] This EMS Care Summary contains data elements from the applicable legal record (which may be displayed differently). It is designed to provide pertinent information for the following purposes: continuity of care, clinical quality, and state data reporting. The complete legal record is available to ED staff and administrators of the receiving hospital in [employer]'s Patient Tracker. All data is provided "as is."
[~2021-04-27 16:52] MED LIST changes: +MIRALAX119 GM PO; -POLYETHYLENE G255 GM PO
[2021-04-27 16:54] VITALS: BP 164/68
[2021-04-27 17:18] LABS: ABSOLUTE NEUTROPHILS 5.1 thou/uL (1.4-8.2); BASOPHILS 0.8 % (0.0-2.0); EOSINOPHILS 1.2 % (0.0-3.0); HEMATOCRIT 26.1 % (37.0-47.0); HEMOGLOBIN 8.9 gm/dL (12.0-15.0); LYMPHOCYTES 13.3 % (24.0-44.0); MCH 32.3 pg (26.0-34.0); MCHC 34.1 g/dL (28.0-37.0); MCV 94.5 fL (80.0-100.0); MONOCYTES 11.1 % (1.0-8.0); PLATELET COUNT 263 thou/uL (150-400); POLYS 73.6 % (36.0-66.0); RBC 2.76 mil/uL (4.20-5.00); RDW 16.3 % (10.5-14.5); WBC 6.9 thou/uL (4.0-11.0)
[2021-04-27 17:22] LABS: CALCIUM 8.3 mg/dL (8.5-10.1); CREATININE 0.7 mg/dL (0.6-1.0); POTASSIUM 4.7 mmol/L (3.5-5.1)
[2021-04-27] MEDS ORDERED: AMOX TR-K CLV1 EAC4 PO (17:46)
[2021-04-27] MEDS ORDERED: CARVEDILOL25 MG PO (17:58)
[2021-04-27] MEDS ORDERED: LEXAPRO 10 MG T10 M2 PO (18:01)
[2021-04-27] MEDS ORDERED: FUROSEMIDE 40 M40 M1 PO (18:01)
[2021-04-27] MEDS ORDERED: FUROSEMIDE 40 M40 MG PO (18:02)
[2021-04-27 21:04] VITALS: BP 147/53
[2021-04-27 22:36] VITALS: BP 142/44
[2021-04-28 00:46] VITALS: BP 157/57
[2021-04-28 04:27] VITALS: BP 151/65
[2021-04-28 05:18] LABS: HEMATOCRIT 24.3 % (37.0-47.0); HEMOGLOBIN 8.1 gm/dL (12.0-15.0); MCH 32.1 pg (26.0-34.0); MCHC 33.5 g/dL (28.0-37.0); MCV 95.9 fL (80.0-100.0); RBC 2.54 mil/uL (4.20-5.00); WBC 6.3 thou/uL (4.0-11.0)
[2021-04-28 05:37] LABS: CREATININE 0.6 mg/dL (0.6-1.0); POTASSIUM 4.1 mmol/L (3.5-5.1)
--- NOTE | 2021-04-28 07:15 | NUR ---
NEW ADMISSION FOR CHF EXACEBATION, ANEMIA, PNE. PATIENT DENIED PAIN OR DISCOMFORT. PATIENT HAD INCREASED ANXIETY AND DRY COUGH CALLED NUT STEAMER NEW ORDER OF COUGH SYRUP AND HALDOL, BUT PATIENT DECLINED. PATIENT NEEDS X1 ASSISTANCE WITH ADL, BED MOBILITY, TRANSFER AND TOIETING. PATIENT C/O SOA CALLED RT, BREATHING TREATMENT GIVEN. NO SOA AND DISTRESS NOTED. FALL PRECAUTION IN PLACE. PATIENT SKIN IS WARM AND DRY, BRUISING NOTED ON LUE.PATIENT IN BED ASLEEP AT THIS TIME BREATHING REGULAR AND UNLABOURED.
--- NOTE | 2021-04-28 07:24 | EKG ---
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: tl : 1945 Requested By: Alexey Martínez Order Number: [id number] MD: Franky Painting Measurements Intervals [place] Rate: 68 P: 29 WY: 147 QRS: -2 QRSD: 123 T: -3 QT: 462 QTc: 492 Interpretive Statements Sinus rhythm Baseline wander in lead(s) V5 Compared to ECG 03/13/2021 02:37:12 Ventricular premature complex(es) no longer present Right ventricular hypertrophy no longer present Electronically Signed On 04-28-2021 7:24:10 CDT by Franky Painting [email or web address] <ELECTRONICALLY SIGNED> By: Franky Painting MD, [facility] 04/28/21 0724 170 170 Franky Painting MD, [facility] /EPI
[2021-04-28 07:56] VITALS: BP 150/79
--- NOTE | 2021-04-28 14:14 | NUR ---
Assumed pt care at 7am.Pt in bed resting and c/o soa. O2 sat on 4liter was 100%. RT paged and breathing treatment given.Pt rported feeling better. Meds given and well tolerated. Received call from pt dtr,updates given.PT and OT eval done today. Pt up in chair with alarm on. Fall bundle in place.Will continue to monitor.
--- NOTE | 2021-04-28 14:29 | NUR ---
PT ADMITTED RELATED TO PNE, COPD, ANEMIA. CM REVIEWED CHART AND SPOKE WITH CARE TEAM. CM MET WITH PT AT BEDSIDE THIS DAY. PT APPEARED TO BE A&O X4. CM ROLE INTRODUCED. PT INDICATED SHE LIVES AT [facility] 3R FLOOR. PT INDICATED SHE HAS A FWW AND WC FOR HOME USE. 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 PT INDICATED SHE PLANS TO RETURN BACK TO [facility] ONCE MEDICALLY STABLE. CM SPOKE WITH ADMISSIONS AT [facility] GERALD PEREZ FAXED CLINICAL UPDATE. CHRIS SPOKE WITH PT'S CARY LEAL . SHE CONFIRMED THAT ABOVE. CARE TEAM INDICATED THAT PT WOULD BE HERE OVER THE WEEKEND. POSSIBLE DC BEGINING OF NEXT WEEK. CM FOLLOWING REGARDING DC PLANNING.
[2021-04-28 16:04] VITALS: BP 145/56
[2021-04-28 21:22] VITALS: BP 113/87
--- NOTE | 2021-04-29 01:43 | NUR ---
UPON SHIFT ASSESSMENT, PT DAUGHTER PRESENT AT BEDSIDE, PT AOX4 WITH INTERMITTENT FORGETFULNESS. PT REPORTS 5/10 LOWER BACK PAIN. PT RECEIVING PRN PO APAP Q4HR. PT REPORTS SOB WITH EXERTION AND INTERMITTENTLY AT REST, REMAINS ON 3L O2 VIA NC WITHOUT DESATURATION. PT WITH NONPRODUCTIVE COUGH AND RUNNY NOSE. PT RECEIVING PRN BREATHING TREATMENTS Q4HR AND PRN PO GUAFENESIN COUGH MEDICINE Q4HR. PT TOLERATING PO INTAKE OF FLUIDS AND CARB CONTROLLED DIET WITHOUT ISSUE. PT WITHOUT NAUSEA OR EMESIS. PT VOIDING PER TOILET, AMBULATES WITH X1 ASSIST AND WALKER, RESTING IN BED OTHERWISE. FREQUENT REPOSITIONING ENCOURAGED WHILE IN BED, PT NOTED TO SHIFT INDEPENDENTLY. SENSATION INTACT, CAPILLARY REFILL LESS THAN 3SEC, PERIPHERAL PULSES PALPABLE IN ALL EXTREMITIES. PT ENCOURAGED TO NOTIFY STAFF FOR ALL NEEDS, CALL LIGHT WITHIN REACH, BED ALARM ON, BED LOCKED IN LOWEST POSITION, FREQUENT MONITORING WILL CONTINUE.
[2021-04-29 07:47] VITALS: BP 169/54
[2021-04-29 11:45] VITALS: BP 115/84
[2021-04-29 15:45] VITALS: BP 148/67
--- NOTE | 2021-04-29 16:34 | NUR ---
Assumed pt care at 7am.Assessment completed.vss. Pt reported sleeping good last noc.Assisted pt with tray setup at all meals. Good appetite noted.Pt called out around 1530 stated that she dominick't breath. O2 sat on 3l was 95%. Rt paged for breathing treatment. Dr Barragan notified. Order received.Dtr here to visit,updates given. Fall bundle in place. Will continue to monitor.
[2021-04-29 21:14] VITALS: BP 147/53
[2021-04-30 00:45] VITALS: BP 195/86
--- NOTE | 2021-04-30 04:18 | NUR ---
Pt. rested quietly during the night when checked on during frequent rounds. No c/o shortness of air, but pt. feels she is not getting any o2 from the nasal canula. This nurse checked it and reassured pt. that she was getting o2. Pt. has been up several times to the bedside comode with assistance of one. No c/o pain. Has a productive dry cough and prn cough med given (see emar) with some relief. Bed alarm is on and head of the bed elevated.
[2021-04-30 04:33] VITALS: BP 172/60
[2021-04-30 07:01] LABS: HEMATOCRIT 26.8 % (37.0-47.0); HEMOGLOBIN 8.8 gm/dL (12.0-15.0); MCHC 32.8 g/dL (28.0-37.0); MCV 97.5 fL (80.0-100.0); RBC 2.75 mil/uL (4.20-5.00); RDW 16.1 % (10.5-14.5); WBC 7.4 thou/uL (4.0-11.0)
[2021-04-30 07:17] LABS: CALCIUM 8.6 mg/dL (8.5-10.1); CREATININE 0.5 mg/dL (0.6-1.0); POTASSIUM 4.3 mmol/L (3.5-5.1)
[2021-04-30 08:21] VITALS: BP 131/64
[2021-04-30 12:15] VITALS: BP 137/47
[2021-04-30 16:09] VITALS: BP 151/58
--- NOTE | 2021-04-30 18:39 | NUR ---
Assumed pt care at 7am.Pt in and out of bed to chair with assist.Assessment completed.vss.Pt breathing better today.Assist with tray setup. Good appetite noted.Family called and updates given. No verbal c/o. Pt requested for sandwich and coffee after lunch,it was given. Fall bundle in place. Will continue to monitor.
[2021-04-30 20:00] VITALS: BP 138/57
--- NOTE | 2021-05-01 02:42 | NUR ---
PT CARE ASSUMED WITH PT IN CHAIR RELAXING AT 1900.PT IS A/O X4.PT IS UP WITH X1 ASSIST TO BSC AND CHAIR.PT ON 3L OF O2 VIA NC.PT HAS SCHEDULED AND PRN BREATHING TREATMENT .PT ACCUCHECK ACHS WITH SSI.IV ACCESS ON RFA SL.WILL CONTINUE TO MONITOR PER POC
[2021-05-01 04:30] VITALS: BP 139/80
[2021-05-01] MEDS ORDERED: LASIX 40 MG TAB40 MG PO (13:05)
--- NOTE | 2021-05-01 16:11 | NUR ---
CARE TEAM INDICATED THAT PT IS MEDICALLY STABLE TO DC BACK TO [facility] THIS DAY. CM NOTIFIED GERALD AT FACILITY. SHE IS AWARE AND AGREEABLE. CHART COPY MADE. ORDERS FAXED. CM ARRANGED WC TRANSPORT WITH 4L O2 WITH [facility] FOR PROPAGATION MANAGER BETWEEN [id number]. 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 NURSE HAS NUMBER FOR REPORT. NO OTHER CM INTERVENTION INDICATED. CASE CLOSED.
--- NOTE | 2021-05-01 16:21 | NUR ---
ASSUMED CARE OF PT AT 0700. PT RESTED QUIETLY IN ROOM WITH FEW COMPLAINTS THROUGHOUT THE DAY , VSS. PT STILL CONTINUES TO HAVE PERSISTENT NON-PRODUCTIVE COUGH AND REQUIRE 4L OF OXYGEN. AMBULATES TO COMMODE WELL. PT IS SET TO GO BACK TO HER FACILITY TODAY PER MD DISCHARGE. DAUGHTER HAS CALLED TO VOICE HER CONCERN ABOUT THIS. ASSURED DAUGHTER THAT MD WOULD NOT ISSUE DC IF HE BELIEVED READMIT RISK TO BE HIGH. WILL HELP DC HER BACK TO FACILITY.
[2021-05-01 17:09] VITALS: BP 139/80
== END 2021-05-01 17:42 | DRG 291 ==
LOC: ER 16:52 → EROBS 18:14 → 4W 18:14
PROVIDERS: Emergency Medicine; Internal Medicine; ADMIT Hospitalist; ATTEND Hospitalist
DX: I11.0 Hypertensive heart disease with heart failure (principal); J96.01 Acute respiratory failure with hypoxia; E87.1 Hypo-osmolality and hyponatremia; I50.23 Acute on chronic systolic (congestive) heart failure; E11.9 Type 2 diabetes mellitus without complications; J44.9 Chronic obstructive pulmonary disease, unspecified; F31.9 Bipolar disorder, unspecified; Z20.822 Contact with and (suspected) exposure to COVID-19; Z79.899 Other long term (current) drug therapy; Z90.710 Acquired absence of both cervix and uterus; Z88.0 Allergy status to penicillin; Z88.2 Allergy status to sulfonamides; Z88.8 Allergy status to other drugs, medicaments and biological substances; Z91.048 Other nonmedicinal substance allergy status; J30.9 Allergic rhinitis, unspecified; K21.9 Gastro-esophageal reflux disease without esophagitis; F03.90 Unspecified dementia, unspecified severity, without behavioral disturbance, psychotic disturbance, mood disturbance, and anxiety; E78.5 Hyperlipidemia, unspecified; Z85.828 Personal history of other malignant neoplasm of skin; Z87.440 Personal history of urinary (tract) infections; Z87.01 Personal history of pneumonia (recurrent); I25.2 Old myocardial infarction
CPT/HCPCS: 10040

== ENCOUNTER → 2021-08-24 | Outpatient (CLI) | payer OTHER ==
[~2021-08-24] MED LIST changes: +AMOX TR-K CLV1 EAC4 PO; +CARVEDILOL25 MG PO; +FUROSEMIDE 40 M40 M1 PO; +FUROSEMIDE 40 M40 MG PO; +LASIX 40 MG TAB40 MG PO; +LEXAPRO 10 MG T10 M2 PO
== END ==
LOC: SJCVCIMAG 11:06
PROVIDERS: ATTEND Internal Medicine Cardiovascular Disease
DX: I08.3 Combined rheumatic disorders of mitral, aortic and tricuspid valves (principal); R94.31 Abnormal electrocardiogram [ECG] [EKG]; I45.10 Unspecified right bundle-branch block; I42.8 Other cardiomyopathies; I35.0 Nonrheumatic aortic (valve) stenosis; I25.10 Atherosclerotic heart disease of native coronary artery without angina pectoris; E78.00 Pure hypercholesterolemia, unspecified; J44.9 Chronic obstructive pulmonary disease, unspecified; E87.1 Hypo-osmolality and hyponatremia; F41.9 Anxiety disorder, unspecified; E11.9 Type 2 diabetes mellitus without complications; I10 Essential (primary) hypertension; Z88.0 Allergy status to penicillin; Z88.2 Allergy status to sulfonamides; Z88.5 Allergy status to narcotic agent; Z79.899 Other long term (current) drug therapy; Z79.82 Long term (current) use of aspirin